=== PATIENT | male | born 1980 | race Caucasian/White ===

== ENCOUNTER 2021-07-30 12:37 | Emergency (ER) | payer OTHER, SELFPAY ==
--- NOTE | ~2021-07-30 | XR_ITS ---
EXAMINATION: XR CHEST CLINICAL INFORMATION: Shortness of breath COMPARISON: Previous chest x-ray April 2017 TECHNIQUE: Frontal view of the chest was obtained. FINDINGS: The cardiac and mediastinal contours are normal. The lungs are clear. There is no pleural effusion or pneumothorax. There is an old healed fracture and orthopedic hardware in the right clavicle similar to previous exam. Bony structures are otherwise unremarkable. XR/XR chest 1V IMPRESSION: No evidence for acute disease in the chest.
[2021-07-30 12:45] VITALS: BP 147/97; PULSE 58; RESP 18; TEMP 36.7; O2SAT 99; BMI 26.6
--- NOTE | 2021-07-30 13:19 | ED_ITS ---
HPI - URI/Sore Throat General Chief Complaint: Upper Respiratory Symptoms Stated Complaint: Sob, Covid + Time Seen by Provider: 07/30/21 13:13 Source: patient and distresser Mode of arrival: ambulatory Limitations: language barrier History of Present Illness HPI Narrative: 41-year-old male w/ history of asthma here with complaints of some shortness of breath, chills, body aches and nausea with some chest discomf ort with coughing since last evening. Patient tells me tested positive for COVID on July 22. He had been feeling okay until yesterday when his symptoms seem to get much worse. Patient is not vaccinated for COVID Related Data Allergies Allergy/AdvReac Type Severity Reaction Status Date / Time No Known Allergies Allergy Unverified 04/25/20 19:19 [No Known Allergies*] Review of Systems Review of Systems: Yes all other systems are reviewed and are negative Constitutional: Constitutional: Reports no additional constitutional complaints, Reports body ache(s), Reports chills, Denies fever(s), Denies headache(s) and Denies weakness Eyes: Eyes: Reports no additional eye complaints and Denies change in vision ENT: Reports system reviewed and no additional complaints, except as documented, Denies dizziness, Denies headache(s), Denies nasal congestion, Denies nasal discharge and Denies neck pain Cardiovascular: Cardiovascular: Reports no additional cardiovascular complaints, Reports chest pain, Denies leg edema and Reports dyspnea Respiratory: Respiratory: Reports no additional respiratory complaints, Denies cough and Reports dyspnea Gastrointestinal: Gastrointestinal: Reports no additional gastrointestinal complaints, Denies abdominal pain, Denies diarrhea, Denies nausea and Denies vomiting Genitourinary: Genitourinary: Denies urinary incontinence Musculoskeletal: Musculoskeletal: Reports no additional musculoskeletal compla ints, Denies back pain, Denies arthralgias, Denies joint swelling, Denies neck pain, Denies numbness and Denies tingling Integumentary/Breasts: Skin/Breast: Reports system reviewed and no additional complaints, except as docu and Denies rash Neurologic: Denies Abnormal speech present, Denies dizziness, Denies heada aba(s), Denies numbness, Denies tingling and Denies weakness PMFSH Past Medical History Attestation statement: The following information was validated with the patient. Source: old records reviewed and nursing notes reviewed Medical History Asthma COVID-19 Social History Social History Advance Directives: No Advance Directives Information Provided: No Physical Exam Vital Signs: Vital Signs: Last Vital Signs Temp 98.6 F 07/30/21 16:00 Pulse 60 07/30/21 16:00 Resp 16 07/30/21 16:00 BP 131/92 H 07/30/21 16:00 Pulse Ox 99 07/30/21 16:00 BMI result Body Mass Index 26.6 Const: General: cooperative, healthy appearing, comfortable and no acute distress Orientation/consciousness: patient oriented x3 Limitations: no limitations HENMT: Head: Yes normal to inspection Ears: hearing grossly normal bilaterally General nose exam: Normal external nose present Face and sinus: Yes normal facial exam Mouth: Normal oral and palatal mucosa present Throat: Yes posterior oropharynx normal Eyes: General: appearance normal, both eyes and all related structures Pupils: Equal, round and reactive pupils present Neck: Neck: Yes normal visual inspection Chest: Chest palpation & inspection: normal inspection of the chest Resp: Effort & Inspection: normal respiratory effort Auscultation: clear to auscultation bilaterally Cardio: Rate: regular rate Rhythm: regular rhythm Peripheral pulses: Peripheral pulses 2+ throughout GI: Inspection: Yes normal to inspection Palpation (GI): Soft to palpation and nontender Auscultation: normal bowel sounds Back/Spine/Pelvis: Thoracic/Lumbar Spine: thoracic and lumbar spine normal to inspection Skin: General skin exam: no rashes or lesions noted Neuro: General: patient oriented x3, no focal motor deficits and normal sensation to monofilament Cranial nerves: Yes Equal, round and reactive pupils present Cognition (Neuro): normal cognition Speech: No Abnormal speech present Gait exam (Neuro): Normal gait present Motor exam (neuro): 5/5 motor strength present throughout Extrem: General: Yes normal to inspection, Yes no pedal edema and Yes no calf tenderness Course Course Course Narrative: 41-year-old male with a history of asthma, not vaccinated for COVID here with complaints of shortness of breath, chest discomfort with coughing, body aches, chills since last evening. Patient tested positive for COVID on July 22. His initial symptoms were loss of taste and smell but last night his symptoms became much worse which prompted his visit here in the emergency department. Vitals are stable. Patient is speaking full sentences. No obvious tachypnea shortness of. No leg swelling or pain. Will check chest x-ray, EKG, labs. 1600-chest x-ray shows no acute finding. EKG and troponin are flat. Labs showed no acute abnormality. The patient is speaking full sentences. Lung sounds are clear. No hypoxia, tachycardia or tachypnea. Reassured the patient. Due to his history of asthma and obesity he is a candidate for monoclonal antibodies. A referral was faxed to [facility] and the patient was given a copy of the report. Reviewed worrisome signs and symptoms of when to return to the emergency d epartment. Comfortable discharge home. MDM - URI/Sore Throat Medical Records Attestation: I reviewed the patient's medical records. Lab Data Attestation: I reviewed the patient's lab results. Result diagrams: 07/30/21 15:08 07/30/21 15:08 Labs: Lab Results 07/30/21 07/30/21 07/30/21 Range/Units 15:08 15:08 15:08 WBC 4.9 (4.8-10.8) X10*3/uL RBC 5.77 (4.60-5.80) X10*6/uL Hgb 16.6 (14.0-18.0) g/dl Hct 51.1 (42.0-52.0) % MCV 88.6 (80.0-98.0) fL MCH 28.8 (27.0-33.0) pg MCHC 32.5 (31.0-36.0) g/dl RDW 12.8 (11.0-16.0) % Plt Count 206 (160-400) X10*3/uL MPV 11.6 (9.4-12.4) fL Immature Gran % (Auto) 0.8 H (0.0-0.4) % Neut % (Auto) 47.6 (45-73) % Lymph % (Auto) 32.7 (20-40) % Creek % (Auto) 15.4 H (2-11) % Eos % (Auto) 3.3 (0-4) % Baso % (Auto) 0.2 (0-2) % Lymph # (Auto) 1.6 (1.2-4.9) X10*3/uL [place] # (Auto) 0.8 (0.1-1.2) X10*3/uL Eos # (Auto) 0.2 (0.0-0.4) X10*3/uL Baso # (Auto) 0.0 (0.0-0.2) X10*3/uL Abs Immat Gran (auto) 0.04 H (0.00-0.03) X10*3/uL Absolute Neuts (auto) 2.3 (2.0-8.3) x10*3/uL Absolute Nucleated RBC 0.000 (0.0-0.012) X10*3/uL Nucleated RBC % (auto) 0.0 (0.0-0.2) /100WBC D-Dimer High Sensitivty < 150 NG/ML Sodium 138 (135-145) mmol/L Potassium 4.3 (3.3-5.1) mmol/L Chloride 105 (96-108) mmol/L Carbon Dioxide 25 (22-29) mmol/L Anion Gap 12 (12-20) BUN 10 (9-16) mg/dL Creatinine 0.81 (0.5-1.4) mg/dL Estim Creat Clear Calc 108.3 Estimated GFR > 60 Random Glucose 99 (60-115) mg/dL Calcium 10.0 (8.4-10.2) mg/dL Total Bilirubin 0.4 (0.0-1.0) mg/dL Direct Bilirubin 0.2 (0.0-0.5) mg/dL AST 40 H (5-37) U/L ALT 80 H (0-40) U/L Alkaline Phosphatase 64 (39-117) U/L Troponin I High Sens (<3.5-35.0) ng/L Total Protein 7.9 (6.5-8.0) g/dL Albumin 4.3 (3.5-5.0) g/dL COVID-19 (GERRY) (Negative) COVID-19 Clin Com 07/30/21 07/30/21 Range/Units 15:08 15:08 WBC (4.8-10.8) X10*3/uL RBC (4.60-5.80) X10*6/uL Hgb (14.0-18.0) g/dl Hct (42.0-52.0) % MCV (80.0-98.0) fL MCH (27.0-33.0) pg MCHC (31.0-36.0) g/dl RDW (11.0-16.0) % Plt Count (160-400) X10*3/uL MPV (9.4-12.4) fL Immature Gran % (Auto) (0.0-0.4) % Neut % (Auto) (45-73) % Lymph % (Auto) (20-40) % Creek % (Auto) (2-11) % Eos % (Auto) (0-4) % Baso % (Auto) (0-2) % Lymph # (Auto) (1.2-4.9) X10*3/uL [place] # (Auto) (0.1-1.2) X10*3/uL Eos # (Auto) (0.0-0.4) X10*3/uL Baso # (Auto) (0.0-0.2) X10*3/uL Abs Immat Gran (auto) (0.00-0.03) X10*3/uL Absolute Neuts (auto) (2.0-8.3) x10*3/uL Absolute Nucleated RBC (0.0-0.012) X10*3/uL Nucleated RBC % (auto) (0.0-0.2) /100WBC D-Dimer High Sensitivty NG/ML Sodium (135-145) mmol/L Potassium (3.3-5.1) mmol/L Chloride (96-108) mmol/L Carbon Dioxide (22-29) mmol/L Anion Gap (12-20) BUN (9-16) mg/dL Creatinine (0.5-1.4) mg/dL Estim Creat Clear Calc Estimated GFR Random Glucose (60-115) mg/dL Calcium (8.4-10.2) mg/dL Total Bilirubin (0.0-1.0) mg/dL Direct Bilirubin (0.0-0.5) mg/dL AST (5-37) U/L ALT (0-40) U/L Alkaline Phosphatase (39-117) U/L Troponin I High Sens 8.5 (<3.5-35.0) ng/L Total Protein (6.5-8.0) g/dL Albumin (3.5-5.0) g/dL COVID-19 (GERRY) Positive A (Negative) COVID-19 Clin Com See Note Imaging Data Chest x-ray: Attestation: I personally reviewed and interpreted this imaging study as follows: Radiologist's impression: Launch?Image [address] [id number] XRay Report Signed Patient: Jamal Contreras MR#: [id number] : 1980 Acct:[id number] Age/Sex: 41 / M ADM Date: 07/30/21 Loc: .ED Attending Dr: Ordering Physician: Jairo Gurrola MD Date of Service: 07/30/21 Procedure(s): XR chest 1V Accession Number(s): [id number] cc: Jairo Gurrola MD~ EXAMINATION: XR CHEST CLINICAL INFORMATION: Shortness of breath COMPARISON: Previous chest x-ray April 2017 TECHNIQUE: Frontal view of the chest was obtained. FINDINGS: The cardiac and mediastinal contours are normal. The lungs are clear. There is no pleural effusion or pneumothorax. There is an old healed fracture and orthopedic hardware in the right clavicle similar to previous exam. Bony structures are otherwise unremarkable. XR/XR chest 1V IMPRESSION: No evidence for acute disease in the chest. ? ECG Data Attestation: I personally reviewed and interpreted this ECG as follows: ECG interpretation date: 07/30/21 ECG interpretation time: 14:14 Interpretation: Sinus bradycardia with a rate of 48, normal OR, normal QRS, normal QT. Nonspecific ST changes unchanged when compared to previous 2017 Discharge Plan Discharge Clinical Impression: COVID-19 Patient Disposition: Home, Self-Care Instructions: COVID-19 (Coronavirus Disease 2019) (ED) Additional Instructions: You have been referred for monoclonal antibody treatment. You were given your referral in case you needed Continue to alternate Motrin and Tylenol Increase fluids, rest Continue your quarantine until August 02 Referrals: Rubens Yuen MD [Primary Care Provider] - 2 days Stand Alone Forms: Work/School Release Interventions: ED Discharge Assessment Last Done: 07/30/21 16:36 Discharge Date/Time: 07/30/21 16:37 Print Language: Icelandic
--- NOTE | 2021-07-30 13:43 | ECG_ITS ---
Test Reason : CHEST PAIN Blood Pressure : / mmHG Vent. Rate : 048 BPM Atrial Rate : 048 BPM P-R Int : 136 ms QRS Dur : 078 ms QT Int : 426 ms P-R-T Axes : 064 076 033 degrees QTc Int : 380 ms Artifact in tracing Sinus bradycardia Otherwise normal ECG When compared with ECG of 05-MAY-2017 14:42, T wave inversion no longer evident in Inferior leads Referred By: Colette Cassidy Electronically Signed By:AZAEL GREENE
[2021-07-30] MEDS: Albuterol Sulfate 90 MCG 8 GM INHALER 2 PUFF INHALE (14:10)
[2021-07-30 15:13] LABS: MANUAL DIFF FLAG NO
[2021-07-30 15:25] LABS: Basophils Percent Auto 0.2 % (0-2); Eosinophils Absolute Auto 0.2 X10*3/uL (0.0-0.4); Eosinophils Percent Auto 3.3 % (0-4); Hematocrit 51.1 % (42.0-52.0); Hemoglobin 16.6 g/dl (14.0-18.0); Imm Gran Abs Auto 0.04 X10*3/uL (0.00-0.03); Imm Gran Pct Auto 0.8 % (0.0-0.4); Lymphocytes Absolute Auto 1.6 X10*3/uL (1.2-4.9); Lymphocytes Percent Auto 32.7 % (20-40); Mean Corpuscular HGB Conc 32.5 g/dl (31.0-36.0); Mean Corpuscular Hemoglobin 28.8 pg (27.0-33.0); Mean Corpuscular Volume 88.6 fL (80.0-98.0); Mean Platelet Volume 11.6 fL (9.4-12.4); Monocytes Absolute Auto 0.8 X10*3/uL (0.1-1.2); Monocytes Percent Auto 15.4 % (2-11); Neutrophils Absolute Auto 2.3 x10*3/uL (2.0-8.3); Neutrophils Percent Auto 47.6 % (45-73); Platelet Count 206 X10*3/uL (160-400); Red Blood Count 5.77 X10*6/uL (4.60-5.80); Red Cell Distribution Width 12.8 % (11.0-16.0); White Blood Count 4.9 X10*3/uL (4.8-10.8)
[2021-07-30 15:31] LABS: Alanine Aminotransferase 80 U/L (0-40); Albumin Level 4.3 g/dL (3.5-5.0); Alkaline Phosphatase 64 U/L (39-117); Anion Gap 12 (12-20); Aspartate Amino Transferase 40 U/L (5-37); Bilirubin Direct 0.2 mg/dL (0.0-0.5); Bilirubin Total 0.4 mg/dL (0.0-1.0); Blood Urea Nitrogen 10 mg/dL (9-16); Carbon Dioxide 25 mmol/L (22-29); Chloride 105 mmol/L (96-108); Creatinine Clr Calc Pharmacy 108.3; Estimated Glomerular Filt Rate > 60; Glucose Random 99 mg/dL (60-115); Potassium 4.3 mmol/L (3.3-5.1); Sodium 138 mmol/L (135-145); Total Protein 7.9 g/dL (6.5-8.0)
[2021-07-30 15:34] LABS: D Dimer High Sensitivity < 150 NG/ML
[2021-07-30 15:35] LABS: COVID-19 Test Positive (Negative); Troponin-I High Sensitivity 8.5 ng/L (<3.5-35.0)
[2021-07-30 16:00] VITALS: BP 131/92; PULSE 60; RESP 16; TEMP 37; O2SAT 99
== END 2021-07-30 16:37 | disposition home or self-care (01) ==
PROVIDERS: Nurse Practitioner Family; Emergency Provider Emergency Medicine Emergency Medical Services; PCP Internal Medicine
DX: U07.1 COVID-19 (principal); R06.02 Shortness of breath; Z79.899 Other long term (current) drug therapy
CPT/HCPCS: 36415; 71045; 80048; 80076; 84484; 85025; 85379; 87635; 93005; 99284

== ENCOUNTER 2021-08-05 09:39 | Emergency (ER) | payer OTHER, SELFPAY ==
--- NOTE | ~2021-08-05 | US_ITS ---
EXAMINATION: US ABDOMEN LIMITED CLINICAL INFORMATION: Right upper quadrant pain. COMPARISON: CT abdomen pelvis 08/05/2021 TECHNIQUE: Real-time imaging of the gallbladder only was performed. FINDINGS: GALLBLADDER: The gallbladder is physiologically distended without evidence of stones, sludge, polyps, wall thickening or pericholecystic fluid. Although the gallbladder appeared normal, the patient did experience tenderness when the area was compressed by the shaper operator. COMMON BILE DUCT: Normal in caliber measuring 0.3 cm in diameter. US/US abdomen limited IMPRESSION: Normal-appearing gallbladder, but with tenderness on compression.
--- NOTE | ~2021-08-05 | CT_ITS ---
EXAMINATION: CT ABDOMEN AND PELVIS WITH CONTRAST CLINICAL INFORMATION: Tender, guarding, vomiting. COMPARISON: None. TECHNIQUE: Multidetector volumetric images were obtained from the superior aspect of the liver through the pubic symphysis following administration 85 mL of Omnipaque 350 intravenous contrast. Sagittal and coronal reformatted images were obtained on the technologist's workstation. Oral contrast: No This CT examination was performed using dose optimization techniques as appropriate, variously including the following: *Automated exposure control *Adjustment of mA and/or kV according to patient size (this includes techniques or standardized protocols for targeted exams where dose is matched to indication/reason for exam; i.e. extremities or head) *Use of iterative reconstruction technique DLP: 380 mGy-cm. FINDINGS: LUNG BASES: The visualized lung bases are unremarkable. LIVER, GALLBLADDER, AND BILIARY TREE: There is a heterogeneously enhancing lesion in segment 7 of the right lobe of the liver measuring 1.4 cm. There are no other focal lesions. There is no biliary duct dilatation. The gallbladder is only mildly distended. There is some nonspecific mild enhancement of the wall. There are no pericholecystic inflammatory changes. There are no definite calcified gallstones. Cholesterol stones are not excluded. PANCREAS: Unremarkable. SPLEEN: Unremarkable. ADRENAL GLANDS: Unremarkable. KIDNEYS AND URETERS: There is a 1 cm exophytic cyst in the midpole of the left kidney. The kidneys and ureters are otherwise unremarkable. BLADDER: Unremarkable. GASTROINTESTINAL TRACT: The small and large bowel are unremarkable. The appendix is unremarkable. ABDOMINAL WALL: No significant hernia is appreciated. LYMPH NODES: Normal. VASCULAR: Unremarkable. PELVIC VISCERA: Unremarkable. OSSEOUS STRUCTURES: Unremarkable. CT/CT abdomen pelvis w con IMPRESSION: 1. Heterogeneously enhancing lesion in segment 7 of the right lobe of the liver. The most likely etiology is a hemangioma. Consider MRI without and with contrast for confirmation. 2. Mild enhancement of the gallbladder wall which is nonspecific but could represent mild inflammation. No definite gallstones but noncalcified gallstones are not excluded. Consider ultrasound if clinically indicated. 3. No other acute abnormalities in the abdomen or pelvis.
[2021-08-05 10:02] VITALS: BP 141/88; PULSE 68; RESP 17; TEMP 36.8; O2SAT 99; BMI 29.0
[2021-08-05 11:45] LABS: Influenza A PCR NEGATIVE (Negative); Influenza B PCR NEGATIVE (Negative); Resp Syncy Virus RNA Qual PCR NEGATIVE (Negative); SARS COV2 PCR INHOUSE POSITIVE (Negative)
[2021-08-05] MEDS: 0.9 % Sodium Chloride 1,000 ML 999 ML IV ×2 (12:22→15:33)
[2021-08-05] MEDS: Acetaminophen 325 MG TABLET 650 MG PO (12:25)
[2021-08-05] MEDS: ondansetron HCL 4 MG/2 ML VIAL IVPUSH ×2 (12:26→15:32)
--- NOTE | 2021-08-05 12:28 | ED.GENADULT ---
HPI - General Adult General Chief complaint: Upper Respiratory Symptoms Stated complaint: COVID Symptoms Time Seen by Provider: 08/05/21 11:26 Source: patient Mode of arrival: ambulatory Limitations: no limitations History of Present Illness HPI narrative: 41-year-old male who tested positive for COVID 16 days ago, and retested positive for COVID do some for , presents for vomiting and nausea with diarrhea that started today. Patient was close to go back to work, he was feeling better, but he felt mildly sick yesterday, and today had nausea, diarrhea, vomiting, sore throat, chills, ankle. Patient states he was having multiple episodes of diarrhea, and was on the toilet, and felt that that part of his rectum was prolapsing. Related Data Allergies Allergy/AdvReac Type Severity Reaction Status Date / Time No Known Allergies Allergy Unverified 04/25/20 19:19 [No Known Allergies*] Review of Systems Constitutional: Constitutional: Reports body ache(s), Reports chills, Reports fatigue, Denies fever(s) and Denies weakness Eyes: Eyes: Denies blind spots and Denies change in vision ENT: Reports nasal congestion, Reports nasal discharge, Denies neck pain and Reports sore throat Cardiovascular: Cardiovascular: Denies chest pain, Denies leg edema, Denies lightheadedness, Denies Loss of Consciousness, Denies palpitations and Denies dyspnea Respiratory: Respiratory: Denies chest congestion, Reports cough, Reports excessive phlegm production, Denies pain on inspiration and Denies dyspnea Gastrointestinal: Gastrointestinal: Reports abdominal pain, Denies melena, Denies hematochezia, Denies coffee ground emesis, Reports diarrhea, Reports nausea and Reports vomiting Musculoskeletal: Musculoskeletal: Reports myalgias and Denies neck pain Integumentary/Breasts: Skin/Breast: Denies erythema and Denies rash Neurologic: Reports system reviewed and no additional complaints, except as documented and Denies weakness Endocrine: Endocrine: Reports fatigue and Denies palpitations PMFSH Past Medical History Medical History Asthma COVID-19 Social History Social History Advance Directives: No Advance Directives Information Provided: No Physical Exam Vital Signs: Vital Signs: Last Vital Signs Temp 98.2 F 08/05/21 13:43 Pulse 82 08/05/21 17:31 Resp 16 08/05/21 17:31 BP 113/73 08/05/21 17:31 Pulse Ox 99 08/05/21 17:31 BMI result Body Mass Index 29.0 Const: Other: actively vomiting General: cooperative, well developed, alert and awake Nutritional Appearance: well nourished Orientation/consciousness: patient oriented x3 Limitations: no limitations HENMT: Head: Yes normal to inspection, Yes normocephalic and Yes atraumatic Ears: hearing grossly normal bilaterally, external ears normal, TM's normal bilaterally and EAC's normal General nose exam: Normal external nose present Face and sinus: Yes normal facial exam and Yes sinuses nontender Mouth: Normal oral and palatal mucosa present Throat: Yes posterior oropharynx normal Eyes: Conjunctivae: conjunctivae normal Pupils: Equal, round and reactive pupils present EOM: EOMs intact bilaterally Neck: Neck: Yes full ROM, Yes no lymphadenopathy and Yes supple Resp: Effort & Inspection: normal respiratory effort and able to speak in complete sentences Auscultation: clear to auscultation bilaterally, no crackles, no rales, no rhonchi and no wheezes Cardio: Rate: regular rate Rhythm: regular rhythm Heart sounds: S1 normal heart sound present and S2 normal heart sound present GI: Inspection: Yes normal to inspection Palpation (GI): Soft to palpation, Tenderness to palpation present (GI) (tender in all quadrants), no guarding and not rigid Percussion: Yes normal to percussion Auscultation: normal bowel sounds Rectal Exam - Male: Yes visual inspection normal, Yes normal sphincter tone, No Abnormal stool present and Yes Internal hemorrhoid(s) present (palpated hemmorrhoid/mass on left side) Skin: General skin exam: no rashes or lesions noted Neuro: General: patient oriented x3, tone normal and moves all extremities Cranial nerves: Yes Equal, round and reactive pupils present Extrem: General: Yes normal to inspection and Yes full ROM Psych: Appearance: grossly normal Affect: normal affect Attitude: cooperative Thought process: Normal thought process present Course Course Course Narrative: 41-year-old male presents with continuing COVID symptoms after feeling better recently. Patient was diagnosed with COVID 15 days ago, tested positive for COVID again on Jul 30 and a was feeling better and finishes quarantine and was returning to work, when yesterday and this morning started having nausea and vomiting, with diarrhea, sore throat with vomiting, and a mild cough On exam, patient is stable vitals, his abdominal exam he has tenderness throughout his entire abdomen, he has what may be an internal hemorrhoid on the left side of has rectum that I was able to feel during rectal exam. Will get labs, retest for COVID, give Zofran, Tylenol Reevaluation(s) Reevaluation #1: Pt Covid positive again Magnesium is normal, there is no leukocytosis, lipase is within normal limits, labs are unremarkable. Patient continues to vomit, has had 2 or 3 episodes of vomiting here, will get CT scan to rule out any worsening pathology. Reevaluation #2: CT/CT abdomen pelvis w con IMPRESSION: 1. Heterogeneously enhancing lesion in segment 7 of the right lobe of the liver. The most likely etiology is a hemangioma. Consider MRI without and with contrast for confirmation. 2. Mild enhancement of the gallbladder wall which is nonspecific but could represent mild inflammation. No definite gallstones but noncalcified gallstones are not excluded. Consider ultrasound if clinically indicated. 3. No other acute abnormalities in the abdomen or pelvis.? Patient was tender in upper right and left abdomen, will apparent ultrasound of gallbladder to rule out gallbladder pathology. Bilirubin only 1.1. If no gallbladder disease, will send patient home with Zofran, Tylenol, rest, push fluids, return precautions Signed pt out to [facility], pending US results Medical Decision Making Lab Data Result diagrams: 08/05/21 12:20 08/05/21 15:19 Labs: Lab Results 08/05/21 08/05/21 08/05/21 Range/Units 10:59 12:20 15:19 WBC 7.2 (4.8-10.8) X10*3/uL RBC 5.23 (4.60-5.80) X10*6/uL Hgb 15.1 (14.0-18.0) g/dl Hct 45.8 (42.0-52.0) % MCV 87.6 (80.0-98.0) fL MCH 28.9 (27.0-33.0) pg MCHC 33.0 (31.0-36.0) g/dl RDW 12.5 (11.0-16.0) % Plt Count TNP MPV 12.5 H (9.4-12.4) fL Immature Gran % (Auto) 0.8 H (0.0-0.4) % Neut % (Auto) 53.1 (45-73) % Lymph % (Auto) 34.8 (20-40) % [place] % (Auto) 8.5 (2-11) % Eos % (Auto) 2.5 (0-4) % Baso % (Auto) 0.3 (0-2) % Lymph # (Auto) 2.5 (1.2-4.9) X10*3/uL [place] # (Auto) 0.6 (0.1-1.2) X10*3/uL Eos # (Auto) 0.2 (0.0-0.4) X10*3/uL Baso # (Auto) 0.0 (0.0-0.2) X10*3/uL Abs Immat Gran (auto) 0.06 H (0.00-0.03) X10*3/uL Absolute Neuts (auto) 3.8 (2.0-8.3) x10*3/uL Absolute Nucleated RBC 0.000 (0.0-0.012) X10*3/uL Nucleated RBC % (auto) 0.0 (0.0-0.2) /100WBC Sodium 141 (135-145) mmol/L Potassium 4.9 (3.3-5.1) mmol/L Chloride 108 (96-108) mmol/L Carbon Dioxide 27 (22-29) mmol/L Anion Gap 11 L (12-20) BUN 8 L (9-16) mg/dL Creatinine 0.84 (0.5-1.4) mg/dL Estim Creat Clear Calc 116.1 Estimated GFR > 60 Random Glucose 89 (60-115) mg/dL Calcium 10.1 (8.4-10.2) mg/dL Magnesium 2.1 (1.6-2.6) mg/dL Total Bilirubin 1.1 H (0.0-1.0) mg/dL AST 37 (5-37) U/L ALT 70 H (0-40) U/L Alkaline Phosphatase 61 (39-117) U/L Total Protein 7.7 (6.5-8.0) g/dL Albumin 4.3 (3.5-5.0) g/dL Lipase 33 (8-78) U/L Influenza Type A (PCR) NEGATIVE (Negative) Influenza Type B (PCR) NEGATIVE (Negative) RSV RNA Qual (PCR) NEGATIVE (Negative) SARS-CoV-2 RNA (RT-PCR) POSITIVE A (Negative) Discharge Plan Discharge Clinical Impression: Nausea vomiting and diarrhea, COVID-19
[2021-08-05 12:32] LABS: MANUAL DIFF FLAG NO
[2021-08-05 12:34] LABS: Basophils Percent Auto 0.3 % (0-2); Eosinophils Absolute Auto 0.2 X10*3/uL (0.0-0.4); Eosinophils Percent Auto 2.5 % (0-4); Hematocrit 45.8 % (42.0-52.0); Hemoglobin 15.1 g/dl (14.0-18.0); Imm Gran Abs Auto 0.06 X10*3/uL (0.00-0.03); Imm Gran Pct Auto 0.8 % (0.0-0.4); Lymphocytes Absolute Auto 2.5 X10*3/uL (1.2-4.9); Lymphocytes Percent Auto 34.8 % (20-40); Mean Corpuscular Hemoglobin 28.9 pg (27.0-33.0); Mean Corpuscular Volume 87.6 fL (80.0-98.0); Mean Platelet Volume 12.5 fL (9.4-12.4); Monocytes Absolute Auto 0.6 X10*3/uL (0.1-1.2); Monocytes Percent Auto 8.5 % (2-11); Neutrophils Absolute Auto 3.8 x10*3/uL (2.0-8.3); Neutrophils Percent Auto 53.1 % (45-73); Red Blood Count 5.23 X10*6/uL (4.60-5.80); Red Cell Distribution Width 12.5 % (11.0-16.0); White Blood Count 7.2 X10*3/uL (4.8-10.8)
[2021-08-05 13:43] VITALS: BP 119/70; PULSE 52; RESP 16; TEMP 36.8; O2SAT 100
[2021-08-05 15:47] LABS: Alanine Aminotransferase 70 U/L (0-40); Albumin Level 4.3 g/dL (3.5-5.0); Alkaline Phosphatase 61 U/L (39-117); Anion Gap 11 (12-20); Aspartate Amino Transferase 37 U/L (5-37); Bilirubin Total 1.1 mg/dL (0.0-1.0); Blood Urea Nitrogen 8 mg/dL (9-16); Calcium 10.1 mg/dL (8.4-10.2); Carbon Dioxide 27 mmol/L (22-29); Chloride 108 mmol/L (96-108); Creatinine Clr Calc Pharmacy 116.1; Estimated Glomerular Filt Rate > 60; Glucose Random 89 mg/dL (60-115); Lipase 33 U/L (8-78); Magnesium 2.1 mg/dL (1.6-2.6); Potassium 4.9 mmol/L (3.3-5.1); Sodium 141 mmol/L (135-145); Total Protein 7.7 g/dL (6.5-8.0)
[2021-08-05] MEDS: iohexoL 350 MG/ML 100 ML INFUS..BTL IV (16:40)
[2021-08-05] MEDS: Morphine Sulfate 4 MG/ML CARTRIDGE IVPUSH (17:28)
[2021-08-05 17:31] VITALS: BP 113/73; PULSE 82; RESP 16; O2SAT 99
--- NOTE | 2021-08-05 19:45 | PC.NURSE ---
patient tolerated two bites of ice while I was in the room . He reported after he vomited and could not tolerate more. Provider and RN notified.
[2021-08-06] MEDS: diphenhydrAMINE HCL 50 MG/ML VIAL IVPUSH (00:12)
[2021-08-06] MEDS: Metoclopramide HCl 10 MG/2 ML VIAL IVPUSH (00:13)
[2021-08-06 00:15] VITALS: PULSE 50; RESP 16; TEMP 36.6; O2SAT 99
[2021-08-06] MEDS: Prochlorperazine Edisylate 10 MG/2 ML VIAL 5 MG IVPUSH (01:40)
[2021-08-06] MEDS: 0.9 % Sodium Chloride 1,000 ML 999 ML IV (01:40)
--- NOTE | 2021-08-06 02:04 | ECG_ITS ---
Test Reason : UPPER RESP Blood Pressure : / mmHG Vent. Rate : 044 BPM Atrial Rate : 044 BPM P-R Int : 152 ms QRS Dur : 078 ms QT Int : 494 ms P-R-T Axes : 067 062 034 degrees QTc Int : 422 ms Marked sinus bradycardia Abnormal ECG When compared with ECG of 30-JUL-2021 14:14, No significant change was found Referred By: Tyron Lim Electronically Signed By:Aden Cobb
[2021-08-06 02:29] VITALS: BP 103/71; PULSE 51; RESP 16; TEMP 36.6; O2SAT 98
--- NOTE | 2021-08-06 05:00 | ECG_ITS ---
Test Reason : WEAKNESS Blood Pressure : / mmHG Vent. Rate : 043 BPM Atrial Rate : 043 BPM P-R Int : 158 ms QRS Dur : 080 ms QT Int : 478 ms P-R-T Axes : 076 073 022 degrees QTc Int : 403 ms Marked sinus bradycardia Abnormal ECG When compared with ECG of 06-AUG-2021 02:57, No significant change was found Referred By: Juliet Andre Electronically Signed By:Aden Cobb
[2021-08-06 05:36] LABS: Amphetamine Screen Urine Not Detected (Not Detect); Barbiturates, Urine Not Detected (Not Detect); Benzodiazepines Screen Urine Not Detected (Not Detect); Cannabinoid Screen Urine POSITIVE (Not Detect); Cocaine Screen Urine Not Detected (Not Detect); Fentanyl, urine Not Detected (Not Detect); Opiate Screen Urine POSITIVE (Not Detect); Phencyclidine Screen Urine Not Detected (Not Detect)
== END 2021-08-06 05:37 | disposition home or self-care (01) ==
PROVIDERS: Physician Assistant; Emergency Provider Emergency Medicine; PCP Internal Medicine
DX: U07.1 COVID-19 (principal); R11.2 Nausea with vomiting, unspecified; R19.7 Diarrhea, unspecified; R10.10 Upper abdominal pain, unspecified; J45.909 Unspecified asthma, uncomplicated
CPT/HCPCS: 0241U; 36415; 74177; 76705; 80053; 80307; 83690; 83735; 85025; 93005; 96361; 96374; 96375; 96376; 99285; J1200; J2270; J2405; J2765; Q9967

== ENCOUNTER 2021-08-10 00:41 | Emergency (ER) | payer OTHER, SELFPAY ==
[2021-08-10 01:40] VITALS: BP 114/84; PULSE 69; RESP 18; TEMP 36.6; O2SAT 98; BMI 24.3
--- NOTE | 2021-08-10 01:49 | ED.MALEGU ---
HPI - Male Genitourinary General Chief complaint: Abdominal Pain Stated complaint: Private Issue Time Seen by Provider: 08/10/21 00:58 Source: patient Mode of arrival: ambulatory Limitations: no limitations History of Present Illness HPI Narrative: Patient with history of COVID noticed hemorrhoid swelling just prior to arrival no bleeding, ? History of hemorrhoids Related Data Previous Rx's Medication Instructions Recorded ondansetron 4 mg disintegrating 4 mg PO ONCE PRN #10 tab 08/06/21 tablet hydrocortisone acetate 25 mg 25 mg GA BID #12 ea 08/10/21 rectal suppository (Anusol-HC) Allergies Allergy/AdvReac Type Severity Reaction Status Date / Time No Known Allergies Allergy Unverified 04/25/20 19:19 [No Known Allergies*] Review of Systems Review of Systems: Yes all other systems are reviewed and are negative [facility] Past Medical History Medical History Asthma COVID-19 Social History Social History Advance Directives: No Advance Directives Information Provided: No Physical Exam Vital Signs: Vital Signs: Last Vital Signs Temp 97.8 F 08/10/21 01:40 Pulse 69 08/10/21 01:40 Resp 18 08/10/21 01:40 BP 114/84 08/10/21 01:40 Pulse Ox 98 08/10/21 01:40 BMI result Body Mass Index 24.3 Const: General: no acute distress and well developed Orientation/consciousness: patient oriented x3 Resp: Effort & Inspection: normal respiratory effort Auscultation: clear to auscultation bilaterally Cardio: Rate: regular rate Rhythm: regular rhythm Heart sounds: S1 normal heart sound present and S2 normal heart sound present GI: Inspection: Yes normal to inspection Palpation (GI): Soft to palpation and nontender Rectal Exam - Male: Yes External hemorrhoid(s) present (Prolapsed hemorrhoid normal color) Neuro: General: patient oriented x3 MDM - Male Genitourinary MDM Narrative Medical decision making narrative: Using Uro jet prolapsed hemorrhoid tried to push inside but pt refused , patient advised to use anusol supp and follow with surgeon Discharge Plan Discharge Clinical Impression: External hemorrhoids Patient Disposition: Home, Self-Care Instructions: Hemorrhoids (ED) Additional Instructions: Avoid straining Follow-up with surgeon for further care Use anusol suppository twice daily till heals completely Prescriptions: New hydrocortisone acetate [Anusol-HC] 25 mg suppository 25 mg GA BID Qty: 12 RF: 0 No Action ondansetron 4 mg tablet,disintegrating 4 mg PO ONCE PRN (Reason: nausea and vomiting) Qty: 10 RF: 0
[2021-08-10] MEDS: Lidocaine HCl 2 % Urojet 10 ML JEL.PF.APP TOPICAL (01:55)
== END 2021-08-10 03:09 | disposition home or self-care (01) ==
PROVIDERS: Emergency Provider Internal Medicine; PCP Internal Medicine
DX: K64.8 Other hemorrhoids (principal)
CPT/HCPCS: 99283

== ENCOUNTER 2021-11-25 18:15 | Emergency (ER) | payer OTHER, SELFPAY ==
[2021-11-25 19:09] VITALS: BP 121/86; PULSE 61; RESP 18; TEMP 36.5; O2SAT 98; BMI 24.7
--- NOTE | 2021-11-25 22:05 | ED_ITS ---
HPI - General Adult General Chief complaint: General Medical Stated complaint: toe infection Time Seen by Provider: 11/25/21 21:44 Source: patient Mode of arrival: ambulatory History of Present Illness HPI narrative: 41-year-old male who presents with developing and itchy area on his 3/4 toes of the right foot that he then scratched and states that it now appears to be more red and infected. He denies any fever, chills or trauma to the area. Related Data Previous Rx's Medication Instructions Recorded ondansetron 4 mg disintegrating 4 mg PO ONCE PRN #10 tab 08/06/21 tablet hydrocortisone acetate 25 mg 25 mg CO BID #12 ea 08/10/21 rectal suppository (Anusol-HC) cephalexin 500 mg capsule 500 mg PO Q12H 5 Days #10 cap 11/25/21 doxycycline hyclate 100 mg tablet 100 mg PO BID 5 Days #10 tab 11/25/21 Allergies Allergy/AdvReac Type Severity Reaction Status Date / Time No Known Allergies Allergy Unverified 04/25/20 19:19 [No Known Allergies*] Review of Systems Review of Systems: Pertinent positives and negatives as stated in HPI 10 point review of systems otherwise negative. [facility] Past Medical History Source: nursing notes reviewed Medical History Asthma COVID-19 Social History Social History Advance Directives: No Advance Directives Information Provided: No Physical Exam ED Vital Signs: Vital Signs - 24 hr 11/25/21 19:09 Temperature 97.7 F Pulse Rate 61 Respiratory Rate 18 Blood Pressure 121/86 Pulse Oximetry 98 BMI result Body Mass Index 24.7 VITAL SIGNS: Reviewed. GENERAL: Well developed, well nourished, in no acute distress. HEAD: Normocephalic/atraumatic EYES: PERRLA, EOMI EARS: Ext canals without abnormality OROPHARYNX: no oral lesions noted, posterior pharynx clear LUNGS: Normal breath sounds. No adventitious sounds or accessory muscle use. SpO2<98> CARDIOVASCULAR: Regular rate and rhythm without noted murmurs ABDOMEN: Soft, non-tender, non-distended with bowel sounds. MUSCULOSKELETAL: No tenderness, deformities, or effusions noted on gross inspection. EXTREMITIES: No cyanosis, clubbing or edema; the 3rd and 4th toes of the right foot on the dorsal aspect appear somewhat erythematous and excoriated, palpable DP/PT, capillary refill and sensation is intact. SKIN: Inspection of the skin reveals no rashes NEUROLOGIC: Alert and oriented x 4. Strength and sensation to light touch were grossly intact x 4. Course Course Course Narrative: 41-year-old male with history and clinical presentation of atraumatic what appears to be superimposed skin infection. Patient will be provided with combination doxycycline and cephalexin for suspected superimposed staph/strep infection. All results and findings discussed with the patient and his family member at bedside. Discharge Plan Discharge Clinical Impression: Abrasion of third toe, right, infected, Abrasion of fourth toe, right, infected Patient Disposition: Home, Self-Care Instructions: Swollen Joint (ED) Additional Instructions: 1. Complete todo el ciclo de antibi?ticos. 2. Lisa un seguimiento con baird proveedor de atenci?n primaria en los pr?ximos 2 a 3 d?as. Regrese a la jessica de emergencias si los s?ntomas empeoran. Prescriptions: New cephalexin 500 mg capsule 500 mg PO Q12H 5 Days Qty: 10 0RF doxycycline hyclate 100 mg tablet 100 mg PO BID 5 Days Qty: 10 0RF No Action ondansetron 4 mg tablet,disintegrating 4 mg PO ONCE PRN (Reason: nausea and vomiting) Qty: 10 0RF hydrocortisone acetate [Anusol-HC] 25 mg suppository 25 mg CO BID Qty: 12 0RF Referrals: Rubens Yuen MD [Primary Care Provider] - Print Language: Citizen Of [place]
[2021-11-25] MEDS: cephALEXin 500 MG CAPSULE PO (22:28)
== END 2021-11-25 22:44 | disposition home or self-care (01) ==
PROVIDERS: Emergency Provider Student in an Organized Health Care Education/Training Program; PCP Internal Medicine
DX: S90.414A Abrasion, right lesser toe(s), initial encounter (principal); X58.XXXA Exposure to other specified factors, initial encounter; Y93.9 Activity, unspecified; Y92.9 Unspecified place or not applicable; Y99.9 Unspecified external cause status; Z79.899 Other long term (current) drug therapy
CPT/HCPCS: 99283

== ENCOUNTER 2021-12-12 10:11 | Emergency (ER) | payer OTHER, SELFPAY ==
--- NOTE | ~2021-12-12 | XR_ITS ---
EXAMINATION: XR FOOT, RIGHT CLINICAL INFORMATION: Infection in the right toes. COMPARISON: None TECHNIQUE: AP, lateral, and oblique views of the right foot. Indicating arrow is pointing to the third and fourth digits. FINDINGS: There is no acute fracture or dislocation. No distal cortical erosive changes are seen. The joint spaces are unremarkable. The tarsal bones are normally aligned. There is an incidental type II accessory navicular bone. The tarsal bones are normally aligned. The soft tissues are unremarkable. XR/XR foot RT min 3V IMPRESSION: Unremarkable right foot. Specifically, no significant acute abnormality in the digits distally.
[2021-12-12 10:13] VITALS: BP 114/81; PULSE 76; RESP 17; TEMP 36.2; O2SAT 97; BMI 25.4
--- NOTE | 2021-12-12 11:32 | ED_ITS ---
HPI - Skin/Abscess/Foreign Bdy General Chief complaint: Extremity Problem Stated complaint: Infected toes Time Seen by Provider: 12/12/21 10:59 Source: patient Mode of arrival: ambulatory Limitations: no limitations History of Present Illness HPI narrative: 41-year-old male with a past medical history of asthma in COVID-19 presenting to the ED with complaints of a rash that is itchy in nature to his right foot that started at the 4th toe and has now spread to the 3rd toe. He reports that he was seen here on 11/25/2021 and diagnosed with a skin infection sent home with 2 antibiotics which include Keflex and doxycycline for 5 days he reports that he took both antibiotics as prescribed and he reports no improvement and he reports that has now spread to the 3rd toe. He reports that this initially started [place] the [place] he felt like something with over his foot or bit his toe although he did not see anything there. He denies any fevers, drainage or any other symptoms complaints or concerns at this time. MD complaint: rash Onset (ago): week(s) (3) Location: R foot Severity: mild Quality: constant and pruritic Pain Consistency: constant Relieving factors: none Exacerbating factors: none Context: other (While at the beach) Associated symptoms: denies other symptoms Treatments prior to arrival: other (Doxycycline and Keflex on 11/25/2021 for 5 days took as prescribed) Related Data Previous Rx's Medication Instructions Recorded ondansetron 4 mg disintegrating 4 mg PO ONCE PRN #10 tab 08/06/21 tablet hydrocortisone acetate 25 mg 25 mg AK BID #12 ea 08/10/21 rectal suppository (Anusol-HC) cephalexin 500 mg capsule 500 mg PO Q12H 5 Days #10 cap 11/25/21 doxycycline hyclate 100 mg tablet 100 mg PO BID 5 Days #10 tab 11/25/21 cephalexin 500 mg capsule 500 mg PO Q6H 10 Days #40 cap 12/12/21 doxycycline hyclate 100 mg tablet 100 mg PO BID 10 Days #20 tab 12/12/21 hydrocortisone 2.5 % topical 1 appl TOPICAL QD-TID PRN #454 g 12/12/21 ointment Allergies Allergy/AdvReac Type Severity Reaction Status Date / Time No Known Allergies Allergy Unverified 04/25/20 19:19 [No Known Allergies*] Review of Systems Review of Systems: Constitutional : No Fever, No Chills , no body aches, no recent illness Head/Face: No facial swelling, No facial redness ENT/Mouth : No oral/throat swelling, No Hoarseness, No Swallowing Difficulty Eyes: No Eye Pain, No Swelling, No Redness Cardiovascular : No Chest Pain, No SOB, No palpitations Respiratory : No Cough, No Sputum, No Wheezing, No Smoke Exposure, No Dyspnea Gastrointestinal : No Nausea, No Vomiting, No Diarrhea, No abdominal Pain Genitourinary : No Dysuria, No Urinary Frequency, No Hematuria Musculoskeletal : No joint pain, No Myalgias, No Joint Swelling Skin : No Skin Lesions, positive rash Neuro : No Weakness, No Numbness, No Headache, No dizziness, No tingling Psych : No Anxiety/Panic, No Depression Heme/Lymph: No Bruising, No Lymphadenopathy Endocrine : No Polyuria, No Polydipsia Denies changes in lotions or detergents. Denies new medications or any changes in medications. Denies drainage from rash. Denies any recent sick contacts or recent travel. Yes all other systems are reviewed and are negative [facility] Past Medical History Attestation statement: The following information was validated with the patient. Medical History Asthma COVID-19 Social History Social History Advance Directives: No Physical Exam Vital Signs: Vital Signs: Last Vital Signs Temp 97.2 F 12/12/21 10:13 Pulse 76 12/12/21 10:13 Resp 17 12/12/21 10:13 BP 114/81 12/12/21 10:13 Pulse Ox 97 12/12/21 10:13 BMI result Body Mass Index 25.4 vital signs have been reviewed as normal and appeared to be correct. Blood pre ssure normal Heart rate normal. Respiration rate normal. Temperature normal. Oxygen saturation normal. Appearance: Alert. Oriented X3. No acute distress. Head: Normal external exam. Normocephalic. Atraumatic. Eyes: PERRLA. EOMI. Conjunctiva and sclera normal. Eyelids normal. ENT: Pharynx normal. Uvula midline. Moist mucous membranes. Neck: Normal inspection. Neck supple. FROM. CVS: Normal heart rate and rhythm. Respiratory: No respiratory distress. Painless inspiration. Skin: Skin warm and dry. Normal skin color. Normal skin turgor. No rashes/lesions/lacerations noted. Extremities: To the right foot patient has dry macular papular eczematous appearing rash very mild no streaking/induration/fluctuance/surrounding erythema/drainage it does not appear wet like a fungal infection it appears more dry than anything. Patient reports it is nontender to palpation. Otherwise no lower extremity edema. All other extremities exhibit normal range of motion nontender. Neuro: Oriented X 3. No motor deficit. No sensory deficit. Reflexes normal. Normal steady gait. No focal neuro deficits noted. Vascular: + radial pulses/+ 2 distal pedal pulses/+2 dorsalis pedis b/l. Normal cap refill. No cyanosis noted to upper extremity nails and lower extremity toes nails. Course Course Course Narrative: 41-year-old male with a past medical history of asthma in [place] [id number] presenting to the ED with complaints of a rash that is itchy in nature to his right foot that started at the 4th toe and has now spread to the 3rd toe. He reports that he was seen here on 11/25/2021 and diagnosed with a skin infection sent home with 2 antibiotics which include Keflex and doxycycline for 5 days he reports that he took both antibiotics as prescribed and he reports no improvement and he reports that has now spread to the 3rd toe. He reports that this initially started when he was at the beach he felt like something with over his foot or bit his toe although he did not see anything there. I discussed this case with Dr. Martinez and he agrees he does not believe that this appears fungal in nature he reports that it could possibly be a cellulitis infection versus an eczematous dermatitis. Therefore will obtain x-ray if x-ray negative will DC home with another course of antibiotics for 10 days and topical steroids and instructions to follow-up with Podiatry. Patient understands agrees with this plan. MDM - Skin/Abscess/Foreign Bdy Medical Records Attestation: I reviewed the patient's medical records. Imaging Data Right foot x-ray: Attestation: I personally reviewed and interpreted this imaging study as follows: Radiologist's impression: FINDINGS: There is no acute fracture or dislocation. No distal cortical erosive changes are seen. The joint spaces are unremarkable. The tarsal bones are normally aligned. There is an incidental type II accessory navicular bone. The tarsal bones are normally aligned. The soft tissues are unremarkable. XR/XR foot RT min 3V IMPRESSION: Unremarkable right foot. Specifically, no significant acute abnormality in the digits distally. Discharge Plan Discharge Clinical Impression: Cellulitis of foot, right, Contact dermatitis and eczema Patient Disposition: Home, Self-Care Instructions: Contact Dermatitis (ED), Cellulitis (ED) Prescriptions: New cephalexin 500 mg capsule 500 mg PO Q6H 10 Days Qty: 40 0RF doxycycline hyclate 100 mg tablet 100 mg PO BID 10 Days Qty: 20 0RF hydrocortisone 2.5 % ointment 1 appl topical QD-TID PRN (Reason: skin irritation) Qty: 454 0RF No Action ondansetron 4 mg tablet,disintegrating 4 mg PO ONCE PRN (Reason: nausea and vomiting) Qty: 10 0RF hydrocortisone acetate [Anusol-HC] 25 mg suppository 25 mg [place] BID Qty: 12 0RF cephalexin 500 mg capsule 500 mg PO Q12H 5 Days Qty: 10 0RF doxycycline hyclate 100 mg tablet 100 mg PO BID 5 Days Qty: 10 0RF Referrals: Rubens Yuen MD [Primary Care Provider] - Arnel Emmanuel [Physician] - 2 days (Call today or tomorrow to make a follow- up appointment within a week) Print Language: Cypriot
== END 2021-12-12 16:50 | disposition home or self-care (01) ==
PROVIDERS: Emergency Provider Emergency Medicine Emergency Medical Services; PCP Internal Medicine
DX: L03.115 Cellulitis of right lower limb (principal); L25.9 Unspecified contact dermatitis, unspecified cause; J45.909 Unspecified asthma, uncomplicated; Z86.16 Personal history of COVID-19
CPT/HCPCS: 73630; 99283; 99284

== ENCOUNTER 2023-03-11 15:42 | Outpatient (AMB) | payer OTHER, SELFPAY ==
--- NOTE | 2023-03-11 15:49 | MHC.PC.OV ---
Vital Signs 03/11/23 15:51 Height 5 ft 6 in Weight 149 lb 2 oz BMI 24.1 BP 100/60 Blood Pressure Location Lt brachial Position Sitting Pulse 52 Pulse Source Pulse Oximeter Pulse Oximetry (%) 98 Oxygen Delivery Method Room Air Intake Visit Reasons: rectal bleeding for past few weeks Intake Note: Patient is here today for rectal bleeding for past few weeks. History ulcer possible flure up. Customs And Immigration Officer Required: No Orthopedics Teacher: Not Required per policy Accompanied by: Self / Same As Patient Allergies No Known Allergies [No Known Allergies*] Allergy (Verified 03/14/23 16:45) Medication List - Last Reconciled 03/14/23 by Daniel Hernandez MD No Known Home Meds Tobacco use date assessed: 03/11/23 Dental Screening Dental Screen Date: 03/11/23 Did you have a dental visit in the last 12 months?: Yes Did you have a dental problem in the last 6 months where you did not have access to dental care?: No Was dental information given to patient?: Patient has dentist HPI rectal bleeding for past few weeks HPI Details 42-year-old male presents to the office for a sick visit. His physician is not available and I am covering. Patient reports that he is bleeding per rectum over the past 2 weeks. He noticed blood in the toilet bowl on several occasions. He does not stain his underwear. He has had history of hemorrhoids in the past and the medication does not seem to be working. No abdominal pain or weight loss. Recently patient has been constipated [facility] Medical History (Updated 03/11/23 @ 16:22 by Daniel Hernandez MD) Asthma COVID-19 Surgical History (Updated 03/11/23 @ 15:57 by GORDON [place]) History of facial surgery History of shoulder surgery Social History (Updated 03/11/23 @ 15:58 by GORDON [place]) Housing: Apartment Alcohol intake: never Patient Tobacco Use Status: Current everyday Tobacco user Tobacco use type: Cigarette Cigarettes Per Day: 1 e-Cigarette/Vaping Use: Never Used Second Hand Smoke Exposure: Yes Substance Use Type: Marijuana service: No Current occupational status: employed Cognitive needs: No Hearing needs: No Vision needs: No Questionnaire PHQ-9 Over the last 2 weeks, how often have you been bothered by any of the following problems? 1. Little interest or pleasure in doing things: several days 2. Feeling down, depressed, or hopeless: several days 3. Trouble falling or staying asleep, or sleeping too much: several days 4. Feeling tired or having little energy: not at all 5. Poor appetite or overeating: nearly every day 6. Feeling bad about yourself - or that you are a failure or have let yourself or your family down: not at all 7. Trouble concentrating on things, such as reading the newspaper or watching television: not at all 8. Moving or speaking so slowly that other people could have noticed. Or the opposite - being so fidgety or restless that you have been moving around a lot more than usual: not at all 9. Thoughts that you would be better off or of hurting yourself in some way: not at all Total score: 6 Source: Developed by Drs. Nate Antonio, Gayathri Espino, Rj Burr and colleagues, with an educational radha from [employer]. Thrive Questionnaire Date Thrive assessed: 03/11/23 I am a: Patient What is your living situation today?: I have a steady place to live Within the past 12 months, did the food you bought not last and you didn't have the money to get more?: Never true Within the past 12 months, did you worry whether your food would run out before you got money to buy more?: Never true Do you have trouble paying for medicines?: No Do you have trouble getting transportation to medical appointments?: No Do you have trouble paying your heating and electricity bill?: No Do you have trouble taking care of your child, family member or friend?: No Do you have trouble with day-to-day activities such as bathing, preparing meals, shopping, managing finances, etc.?: No Are you currently unemployed and looking for a job?: No Are you interested in more education?: No Currently or been in a relationship where the following occur: no concerns reported AUDIT C Alcohol Use Questionnaire (AUDIT-C) 1. How often do you have a drink containing alcohol?: Never Total Score: 0 ROSIO-7 AMB Questionnaire ROSIO-7 Date ROSIO - 7 assessed: 03/11/23 Feeling nervous, anxious, or on edge: 1 = Several days Not being able to stop or control worryin = Several days Worrying too much about different things: 1 = Several days Trouble relaxin = More than half the days Being so restless that it is hard to sit still: 1 = Several days Becoming easily annoyed or irritable: 0 = Not at all Feeling afraid as if something awful might happen: 0 = Not at all Total ROSIO-7 score (0-4 normal; 5-9 mild; 10-14 moderate; 15-21 severe): 6 Source: Developed by Drs. Nate Antonio, Gayathri Espino, Rj Burr and colleagues, with an educational radha from [employer]. Physical exam (Primary Care) Vital Signs: Last Vital Signs Pulse 52 03/11/23 15:51 BP 100/60 03/11/23 15:51 Pulse Ox 98 03/11/23 15:51 Oxygen Delivery Method Room Air 03/11/23 15:51 BMI result Body Mass Index 24.1 Tobacco/Smoking Status: Tobacco use Status Tobacco use date assessed 03/11/23 03/11/23 16:00 Patient Tobacco Use Status Current everyday Tobacco 03/11/23 16:00 Tobacco use type Cigarette 03/11/23 16:00 e-Cigarette/Vaping Use Never Used 03/11/23 16:00 PHQ-9: PHQ-9 Score PHQ-9: Total score 6 03/11/23 16:00 Thrive Assessment: Date of Thrive Assessment Date Thrive assessed 03/11/23 03/11/23 16:00 Currently or been in a relationship where the following occur: no concerns reported Const General: cooperative, healthy appearing and comfortable [facility] Head: Yes normal to inspection and Yes atraumatic Eyes General: appearance normal, both eyes and all related structures Neck Neck: Yes normal visual inspection and Yes full ROM Chest Chest palpation & inspection: normal inspection of the chest GI Palpation (GI): Soft to palpation and No hepatosplenomegaly present Extrem General: Yes normal to inspection and Yes full ROM Assessment and Plan Assessment & Plan (1) Hematochezia: Code(s): K92.1 - Melena Plan: A referral to general surgery has been made. Patient would benefit from hemorrhoidectomy. Orders: Orders Basic Metabolic Panel 03/12/23 K92.1 - Melena Liver Panel 03/12/23 K92.1 - Melena Complete Blood Count no Diff 03/12/23 K92.1 - Melena Coding Level of Care Code Est Pt Level 3 (45813) Diagnoses Hematochezia K92.1
[2023-03-11 15:51] VITALS: BP 100/60; PULSE 52; O2SAT 98; BMI 24.1
== END 2023-03-11 16:24 | disposition home or self-care (01) ==
LOC: HO.HMGH 15:42
PROVIDERS: PCP Internal Medicine; Visit Provider Internal Medicine
DX: K92.1 Melena (principal)
CPT/HCPCS: 99213

== ENCOUNTER 2023-03-12 07:34 | Outpatient (REF) | payer OTHER, SELFPAY ==
[2023-03-12 08:19] LABS: Hemoglobin 16.1 g/dl (14.0-18.0); Mean Corpuscular HGB Conc 32.2 g/dl (31.0-36.0); Mean Corpuscular Hemoglobin 28.8 pg (27.0-33.0); Mean Corpuscular Volume 89.3 fL (80.0-98.0); Mean Platelet Volume 10.8 fL (9.4-12.4); Platelet Count 256 X10*3/uL (160-400); Red Cell Distribution Width 13.2 % (11.0-16.0); White Blood Count 8.6 X10*3/uL (4.8-10.8)
[2023-03-12 08:51] LABS: Alanine Aminotransferase 77 U/L (0-40); Albumin Level 4.1 g/dL (3.5-5.0); Alkaline Phosphatase 57 U/L (39-117); Anion Gap 15 (12-20); Aspartate Amino Transferase 43 U/L (5-37); Bilirubin Direct 0.3 mg/dL (0.0-0.5); Bilirubin Total 0.7 mg/dL (0.0-1.0); Blood Urea Nitrogen 12 mg/dL (9-16); Carbon Dioxide 27 mmol/L (22-29); Chloride 107 mmol/L (96-108); Estimated Glomerular Filt Rate > 60; Glucose Random 96 mg/dL (60-115); Sodium 144 mmol/L (135-145); Total Protein 7.6 g/dL (6.5-8.0)
== END 2023-03-12 07:35 | disposition home or self-care (01) ==
LOC: HO.LAB 07:34
PROVIDERS: PCP Internal Medicine; Visit Provider Internal Medicine
DX: K92.1 Melena (principal)
CPT/HCPCS: 36415; 80048; 80076; 85027

== ENCOUNTER 2023-06-24 09:35 | Outpatient (AMB) | payer OTHER, SELFPAY ==
[2023-06-24 09:43] VITALS: BP 120/80; PULSE 70; O2SAT 99; BMI 24.9
--- NOTE | 2023-06-24 09:43 | MHC.PC.OV ---
Vital Signs 06/24/23 09:43 Height 5 ft 6 in Weight 154 lb 2 oz BMI 24.9 BP 120/80 Blood Pressure Location Lt brachial Position Sitting Pulse 70 Pulse Source Pulse Oximeter Pulse Oximetry (%) 99 Oxygen Delivery Method Room Air Intake Visit Reasons: rectal bleeding Housekeeper Caregiver Required: Yes Accompanied by: Self / Same As Patient Allergies No Known Allergies [No Known Allergies*] Allergy (Verified 06/24/23 09:44) Tobacco use date assessed: 06/24/23 Dental Screening Dental Screen Date: 06/24/23 Did you have a dental visit in the last 12 months?: Yes Did you have a dental problem in the last 6 months where you did not have access to dental care?: No HPI HPI Comments History of Present Illness Details 43-year-old male past medical history significant for asthma, hematochezia and history of hemorrhoids. Patient was seen in March by Dr. Richmond and was referred to general surgery at that time for hemorrhoidectomy however I do not see a patient Followed up. Patient states had a issue with his insurance so he was unable to go for consult. Patient reports hemmrhiod hx, continues have rectal bleeding 1x a day, blair red blood on the tissue and in toilet. small/moderate amount. Patient reports low energy at times, labs ordered to evaluated for anemia. Destiny ESTRADA present during external rectal exam. External hemorrhoid noted. Referral entered to general surgery. [facility] Medical History (Updated 06/24/23 @ 10:00 by DOC Benitez) Asthma COVID-19 Surgical History History of shoulder surgery History of facial surgery Social History (Updated 03/11/23 @ 15:58 by GORDON [place]) Housing: Apartment Alcohol intake: never Patient Tobacco Use Status: Current everyday Tobacco user Tobacco use type: Cigarette Cigarettes Per Day: 1 e-Cigarette/Vaping Use: Never Used Second Hand Smoke Exposure: Yes Substance Use Type: Marijuana service: No Current occupational status: employed Cognitive needs: No Hearing needs: No Vision needs: No Questionnaire PHQ-9 Over the last 2 weeks, how often have you been bothered by any of the following problems? 1. Little interest or pleasure in doing things: several days 2. Feeling down, depressed, or hopeless: several days 3. Trouble falling or staying asleep, or sleeping too much: several days 4. Feeling tired or having little energy: not at all 5. Poor appetite or overeating: nearly every day 6. Feeling bad about yourself - or that you are a failure or have let yourself or your family down: not at all 7. Trouble concentrating on things, such as reading the newspaper or watching television: not at all 8. Moving or speaking so slowly that other people could have noticed. Or the opposite - being so fidgety or restless that you have been moving around a lot more than usual: not at all 9. Thoughts that you would be better off or of hurting yourself in some way: not at all Total score: 6 Source: Developed by Drs. Nate Antonio, Gayathri Espino, Rj Burr and colleagues, with an educational radha from [employer]. Thrive Questionnaire Date Thrive assessed: 06/24/23 I am a: Patient What is your living situation today?: I have a steady place to live Within the past 12 months, did the food you bought not last and you didn't have the money to get more?: Never true Within the past 12 months, did you worry whether your food would run out before you got money to buy more?: Never true Do you have trouble paying for medicines?: No Do you have trouble getting transportation to medical appointments?: No Do you have trouble paying your heating and electricity bill?: No Do you have trouble taking care of your child, family member or friend?: No Do you have trouble with day-to-day activities such as bathing, preparing meals, shopping, managing finances, etc.?: No Are you currently unemployed and looking for a job?: No Are you interested in more education?: No Please select the resources that you would like help with: None Currently or been in a relationship where the following occur: no concerns reported AUDIT C Alcohol Use Questionnaire (AUDIT-C) 1. How often do you have a drink containing alcohol?: Never Total Score: 0 ROSIO-7 AMB Questionnaire ROSIO-7 Date ROSIO - 7 assessed: 06/24/23 Feeling nervous, anxious, or on edge: 1 = Several days Not being able to stop or control worryin = Several days Worrying too much about different things: 1 = Several days Trouble relaxin = More than half the days Being so restless that it is hard to sit still: 1 = Several days Becoming easily annoyed or irritable: 0 = Not at all Feeling afraid as if something awful might happen: 0 = Not at all Total ROSIO-7 score (0-4 normal; 5-9 mild; 10-14 moderate; 15-21 severe): 6 Source: Developed by Drs. Nate Antonio, Gayathri Espino, Rj Burr and colleagues, with an educational radha from [employer]. Review of Systems Const Denies chills, Denies fatigue, Denies fever(s) and Denies poor appetite Eyes Denies no additional complaints ENT Reports Normal hearing present Card Denies chest pain, Denies syncope, Denies rapid heart rate and Denies dyspnea Resp Denies cough and Denies dyspnea GI Denies change in stool character, Denies constipation, Denies diarrhea, Denies nausea, Denies vomiting and Reports other (bleeding hemmorhoid ) Denies dysuria, Denies urinary frequency and Denies urinary urgency Neuro Reports Normal hearing present, Denies confusion and Denies syncope Psych Denies confusion Endo Denies fatigue Physical exam (Primary Care) Vital Signs: Last Vital Signs Pulse 70 06/24/23 09:43 BP 120/80 06/24/23 09:43 Pulse Ox 99 06/24/23 09:43 Oxygen Delivery Method Room Air 06/24/23 09:43 BMI result Body Mass Index 24.9 Tobacco/Smoking Status: Tobacco use Status Tobacco use date assessed 06/24/23 06/24/23 09:44 Patient Tobacco Use Status Current everyday Tobacco 06/24/23 09:44 Tobacco use type Cigarette 06/24/23 09:44 e-Cigarette/Vaping Use Never Used 06/24/23 09:44 PHQ-9: PHQ-9 Score PHQ-9: Total score 6 06/24/23 12:17 Thrive Assessment: Date of Thrive Assessment Date Thrive assessed 06/24/23 06/24/23 09:49 Currently or been in a relationship where the following occur: no concerns reported Const General: No confusion Orientation/consciousness: No confusion HENMT Head: Yes normocephalic and Yes atraumatic Eyes Conjunctivae: conjunctivae normal Chest Chest palpation & inspection: normal inspection of the chest Resp Effort & Inspection: normal respiratory effort Auscultation: clear to auscultation bilaterally, no crackles, no rhonchi and no wheezes Cardio Rate: regular rate Rhythm: regular rhythm Heart sounds: S1 normal heart sound present and S2 normal heart sound present GI Inspection: Yes normal to inspection Neuro General: No confusion Cranial nerves: Yes Normal hearing present Extrem General: No edema Assessment and Plan Assessment & Plan (1) Hematochezia: Code(s): K92.1 - Melena (2) Bleeding hemorrhoid: Code(s): K64.9 - Unspecified hemorrhoids Plan: Referral entered to general surgery, patient would benefit from hemorrhoidectomy. Orders: Orders Complete Blood Count Auto Diff Today K92.1 - Melena Comprehensive Met. Panel Today K92.1 - Melena Referrals General Surgery Referral K64.9 - Unspecified hemorrhoids Coding Level of Care Code Est Pt Level 3 (40448) Diagnoses Hematochezia K92.1 Bleeding hemorrhoid K64.9
== END 2023-06-24 10:04 | disposition home or self-care (01) ==
LOC: HO.HMGH 09:35
PROVIDERS: PCP Internal Medicine; Visit Provider Nurse Practitioner Family
DX: K92.1 Melena (principal); K64.9 Unspecified hemorrhoids
CPT/HCPCS: 99213

== ENCOUNTER 2023-06-24 10:21 | Outpatient (REF) | payer OTHER, SELFPAY ==
[2023-06-24 10:31] LABS: MANUAL DIFF FLAG NO
[2023-06-24 10:51] LABS: Basophils Absolute Auto 0.1 X10*3/uL (0.0-0.2); Basophils Percent Auto 0.7 % (0-2); Eosinophils Absolute Auto 0.5 X10*3/uL (0.0-0.4); Eosinophils Percent Auto 4.6 % (0-4); Hematocrit 48.4 % (42.0-52.0); Hemoglobin 15.9 g/dl (14.0-18.0); Imm Gran Abs Auto 0.18 X10*3/uL (0.00-0.03); Imm Gran Pct Auto 1.8 % (0.0-0.4); Lymphocytes Absolute Auto 2.6 X10*3/uL (1.2-4.9); Lymphocytes Percent Auto 26.8 % (20-40); Mean Corpuscular HGB Conc 32.9 g/dl (31.0-36.0); Mean Corpuscular Hemoglobin 28.6 pg (27.0-33.0); Mean Corpuscular Volume 87.2 fL (80.0-98.0); Mean Platelet Volume 10.9 fL (9.4-12.4); Monocytes Percent Auto 9.7 % (2-11); Neutrophils Absolute Auto 5.5 x10*3/uL (2.0-8.3); Neutrophils Percent Auto 56.4 % (45-73); Platelet Count 312 X10*3/uL (160-400); Red Blood Count 5.55 X10*6/uL (4.60-5.80); Red Cell Distribution Width 13.3 % (11.0-16.0); White Blood Count 9.8 X10*3/uL (4.8-10.8)
[2023-06-24 11:18] LABS: Alanine Aminotransferase 112 U/L (0-40); Albumin Level 4.4 g/dL (3.5-5.0); Alkaline Phosphatase 61 U/L (39-117); Anion Gap 10 (12-20); Aspartate Amino Transferase 59 U/L (5-37); Bilirubin Total 0.6 mg/dL (0.0-1.0); Blood Urea Nitrogen 16 mg/dL (9-16); Calcium 10.4 mg/dL (8.4-10.2); Carbon Dioxide 30 mmol/L (22-29); Chloride 103 mmol/L (96-108); Estimated Glomerular Filt Rate > 60; Glucose Random 104 mg/dL (60-115); Potassium 4.3 mmol/L (3.3-5.1); Sodium 139 mmol/L (135-145); Total Protein 8.3 g/dL (6.5-8.0)
== END 2023-06-24 10:22 | disposition home or self-care (01) ==
LOC: HO.LAB 10:21
PROVIDERS: PCP Nurse Practitioner Family; Visit Provider Nurse Practitioner Family
DX: K92.1 Melena (principal)
CPT/HCPCS: 36415; 80053; 85025

== ENCOUNTER 2023-07-05 14:27 | Outpatient (AMB) | payer OTHER, SELFPAY ==
--- NOTE | 2023-07-05 14:31 | MHC.OFFVIS ---
Intake Vital Signs 07/05/23 14:37 Height 5 ft 6 in Weight 153 lb BMI 24.7 BP 127/73 Blood Pressure Location Lt brachial Position Sitting Pulse 74 Intake Visit Reasons: Unspecified hemorrhoids Intake Note: Pt c/o: admits to bleeding in toilet, during bm, all the time for the past few months, feels prolapse and has to place it back in, constipation, straining, headaches denies nausea, diarrhe, vomit Ice Cream Shop Associate Required: Yes Ice Cream Shop Associate Language: New Car Inspector Name: Pat LEYVA Information Interpreted: non-clinical & clinical Airborne Operations: Airborne Operations Present Accompanied by: Self / Same As Patient Allergies No Known Allergies [No Known Allergies*] Allergy (Verified 07/05/23 14:36) Medication List - Last Reconciled 07/05/23 by Manoj Holly MD No Known Home Meds HPI Unspecified hemorrhoids HPI Details 43-year-old male referred for hemorrhoid issues. He describes bleeding per hemorrhoids with bowel movements. This happens almost every day. He says that sometimes, he would also see blood on his underwear even without a bowel movement. He denies significant pain and swelling but does state that sometimes his hemorrhoids , with bowel movements and he has to push his back frequently. He admits to history of chronic constipation. He has a history of right eye surgery and right clavicular surgery in the past after an accident. [facility] Medical History Asthma COVID-19 Surgical History History of shoulder surgery History of facial surgery Housing: Apartment Alcohol intake: never Patient Tobacco Use Status: Current everyday Tobacco user Tobacco use type: Cigarette Cigarettes Per Day: 1 e-Cigarette/Vaping Use: Never Used Second Hand Smoke Exposure: Yes Substance Use Type: Marijuana service: No Current occupational status: employed Cognitive needs: No Hearing needs: No Vision needs: No Review of Systems Const Denies chills and Denies fever(s) Card Denies chest pain, Denies dyspnea and Denies dyspnea on exertion Resp Denies cough, Denies dyspnea and Denies dyspnea on exertion GI Reports hematochezia, Denies change in bowel habits and Reports constipation Denies hematuria and Denies difficulty urinating Musc Denies back pain and Denies limited range of motion Neuro Denies focal weakness and Denies convulsions Psych Denies depression and Denies mood swings Physical Exam Vital Signs: Last Vital Signs Pulse 74 07/05/23 14:37 BP 127/73 07/05/23 14:37 BMI result Body Mass Index 24.7 Const General: comfortable and no acute distress Orientation/consciousness: patient oriented x3 Neck Neck: Yes no lymphadenopathy Resp Auscultation: clear to auscultation bilaterally Cardio Rhythm: regular rhythm GI Other: External hemorrhoids, left and right, anoscopy done Palpation (GI): Soft to palpation, nontender and no guarding Neuro General: patient oriented x3 Office Procedures Anoscopy He was in dora-knife position. The anoscope was gently inserted. A full examination of the anal canal was done. He did have a bulky internal external column on the left side. He had smaller hemorrhoids on the right. There were no other lesions. There was no active bleeding. There was no ulceration. There was no induration on digital exam [id number] Assessment & Plan Assessment & Plan (1) Bleeding hemorrhoid: Code(s): K64.9 - Unspecified hemorrhoids Plan: He presents with frequent bleeding with his hemorrhoids. He wants to proceed with hemorrhoidectomy. I had a long discussion with him about the technique of exam under anesthesia hemorrhoidectomy. I discussed with him the risks including but not limited to bleeding, infections, postop pain, poor healing, sphincter injury, as well as the benefits and alternatives. I discussed with him what to expect postoperatively. He understands and wants to proceed. I will also describes him a stool softener because of his chronic constipation. Coding Level of Care Code New Pt Level 3 (68363) Diagnoses Bleeding hemorrhoid K64.9 CPT Codes Details - CPT: 21560-[id number] ([id number])
[2023-07-05 14:37] VITALS: BP 127/73; PULSE 74; BMI 24.7
== END 2023-07-05 14:57 | disposition home or self-care (01) ==
LOC: HO.HGS 14:27
PROVIDERS: PCP Nurse Practitioner Family; Referring Provider Nurse Practitioner Family; Visit Provider Surgery
DX: K64.9 Unspecified hemorrhoids (principal)
CPT/HCPCS: 46600; 99203

== ENCOUNTER → 2023-07-05 14:27 | Outpatient (BNVA) | payer OTHER, SELFPAY | PROVIDERS: PCP Nurse Practitioner Family; Referring Provider Nurse Practitioner Family; Visit Provider Surgery | DX: K64.9 Unspecified hemorrhoids (principal) | CPT/HCPCS: 46600; 99202 ==

== ENCOUNTER 2023-07-15 09:35 | Outpatient (REF) | payer SELFPAY ==
[2023-07-15 11:16] LABS: HBS Num1 10.88 mIU/mL (0-7.99); HBc Num1 0.07 S/CO (0.00-0.79); HBsAGNum1 0.42 S/CO (0.00-0.99); Hepatitis B Core Antibody Nonreactive (Nonreactive); Hepatitis B Surface Antigen Negative (Negative); ~HepC Num1 12.52 S/CO (0.00-0.79); ~Hepatitis A Antibody IgM Nonreactive (Nonreactive); ~Hepatitis C Antibody Reactive (Nonreactive)
[2023-07-15 12:40] LABS: HBS Num2 11.24 mIU/mL (0-7.99); HBS Num3 10.87 mIU/mL (0-7.99)
[2023-07-15 12:41] LABS: ~Hepatitis B Surface Antibody GRAYZONE (Nonreactive)
== END 2023-07-15 09:36 | disposition home or self-care (01) ==
LOC: HO.LAB 09:35
PROVIDERS: PCP Nurse Practitioner Family; Visit Provider Nurse Practitioner Family
DX: R79.89 Other specified abnormal findings of blood chemistry (principal)
CPT/HCPCS: 36415; 86704; 86706; 86709; 86803; 87340

== ENCOUNTER 2023-07-19 13:40 | Outpatient (REF) | payer SELFPAY ==
[2023-07-19 15:19] LABS: Alanine Aminotransferase 70 U/L (0-40); Albumin Level 4.4 g/dL (3.5-5.0); Alkaline Phosphatase 53 U/L (39-117); Aspartate Amino Transferase 36 U/L (5-37); Bilirubin Direct 0.2 mg/dL (0.0-0.5); Bilirubin Total 0.4 mg/dL (0.0-1.0); Total Protein 7.8 g/dL (6.5-8.0)
[2023-07-21 18:28] LABS: HCV RNA PCR Qn 6.59 Log IU/mL (NOT DETECTED)
[2023-07-28 16:38] LABS: HCV Genotype LiPA 1a
== END 2023-07-19 13:41 | disposition home or self-care (01) ==
LOC: HO.LAB 13:40
PROVIDERS: PCP Nurse Practitioner Family; Visit Provider Nurse Practitioner Family
DX: R79.89 Other specified abnormal findings of blood chemistry (principal)
CPT/HCPCS: 36415; 80076; 87522; 87902

== ENCOUNTER 2023-07-21 09:43 | Outpatient (REF) | payer SELFPAY ==
[2023-07-29 06:48] LABS: HCV RNA PCR Qn 802000 IU/mL (NOT DETECTED)
[2023-08-05 17:23] LABS: HCV Genotype LiPA 1a
== END 2023-07-21 09:44 | disposition home or self-care (01) ==
LOC: HO.LAB 09:43
PROVIDERS: PCP Internal Medicine; Visit Provider Nurse Practitioner Family
DX: R76.8 Other specified abnormal immunological findings in serum (principal)
CPT/HCPCS: 36415; 87522; 87902

== ENCOUNTER 2023-08-04 15:01 | Outpatient (AMB) | payer SELFPAY ==
--- NOTE | 2023-08-04 14:48 | MHC.OFFVIS ---
Intake Vital Signs 08/04/23 14:58 Height 5 ft 6 in Weight 162 lb BMI 26.1 BP 120/70 Position Sitting Pulse 90 Pulse Source Pulse Oximeter Pulse Oximetry (%) 99 Oxygen Delivery Method Room Air Intake Visit Reasons: Ref.Betsy,Hep -C ,without hepatic coma Elementary Science Teacher Required: Yes Elementary Science Teacher Name: Lloyd Webster CMA Information Interpreted: clinical only Allergies No Known Allergies [No Known Allergies*] Allergy (Verified 08/04/23 14:59) HPI Ref.Betsy,Hep -C ,without hepatic coma HPI Details He has diagnosis of Hepatitis C. He has viral load of 3,930,000 on 07/19. He has no complaints or signs of advanced liver disease. [facility] Medical History Asthma COVID-19 Surgical History History of shoulder surgery History of facial surgery Social History Housing: Apartment Alcohol intake: never Patient Tobacco Use Status: Current everyday Tobacco user Tobacco use type: Cigarette Cigarettes Per Day: 1 e-Cigarette/Vaping Use: Never Used Second Hand Smoke Exposure: Yes Substance Use Type: Marijuana service: No Current occupational status: employed Cognitive needs: No Hearing needs: No Vision needs: No Review of Systems Const All systems reviewed & are unremarkable except as noted in HPI and below Physical Exam Vital Signs: Last Vital Signs Pulse 90 08/04/23 14:58 BP 120/70 08/04/23 14:58 Pulse Ox 99 08/04/23 14:58 Oxygen Delivery Method Room Air 08/04/23 14:58 BMI result Body Mass Index 26.1 Const General: cooperative Orientation/consciousness: patient oriented x3 HEENT Head: Yes normal to inspection Mouth: Normal oral and palatal mucosa present Eyes General: appearance normal, both eyes and all related structures Pupils: Equal, round and reactive pupils present Resp Effort & Inspection: normal respiratory effort Cardio Rate: regular rate Rhythm: regular rhythm GI Palpation (GI): Soft to palpation and nontender General: Yes no CVA tenderness Back/Spine/Pelvis Back: no CVA tenderness Skin General skin exam: no rashes or lesions noted Neuro General: patient oriented x3 Cranial nerves: Yes CN's II-XII intact bilaterally and Yes Equal, round and reactive pupils present Extrem General: Yes normal to inspection Psych Appearance: grossly normal Assessment & Plan Assessment & Plan (1) Hepatitis C: Comment: He has active disease and should receive treatment. Code(s): B19.20 - Unspecified viral hepatitis C without hepatic coma Plan: Would check fibrosis score. Treat when information back and be sure there is no cirrhosis. Orders: Orders HIV Ab/Ag 08/04/23 B19.20 - Unspecified viral hepatitis C without hepatic coma T Spot TB 08/04/23 B19.20 - Unspecified viral hepatitis C without hepatic coma Syphilis Screen 08/04/23 B19.20 - Unspecified viral hepatitis C without hepatic coma Coding Level of Care Code New Pt Level 3 (21555) Diagnoses Hepatitis C B19.20
[2023-08-04 14:58] VITALS: BP 120/70; PULSE 90; O2SAT 99; BMI 26.1
== END 2023-08-04 15:25 | disposition home or self-care (01) ==
PROVIDERS: PCP Internal Medicine; Visit Provider Internal Medicine
DX: B19.20 Unspecified viral hepatitis C without hepatic coma (principal)
CPT/HCPCS: 99203

== ENCOUNTER 2023-08-04 15:01 | Outpatient (REF) | payer SELFPAY ==
[2023-08-05 07:55] LABS: Syphilis Screen Nonreactive (Nonreactive)
[2023-08-05 07:58] LABS: HIV AB/AG Nonreactive (Nonreactive); HIV Num 1 0.08 S/CO (0.00-0.99)
[2023-08-06 21:28] LABS: TS Negative Control Passed; TS Panel A 1; TS Panel B 0; TS Positive Control Passed; TSpotTB Negative (Negative)
[2023-08-07 15:43] LABS: HCV RNA PCR Qn 5.97 Log IU/mL (NOT DETECTED)
[2023-08-12 16:09] LABS: HCV Genotype LiPA 1a
== END 2023-08-04 15:02 | disposition home or self-care (01) ==
LOC: HO.LAB 15:01
PROVIDERS: Absent Provider Nurse Practitioner Family; PCP Internal Medicine; Visit Provider Internal Medicine
DX: B19.20 Unspecified viral hepatitis C without hepatic coma (principal)
CPT/HCPCS: 36415; 86481; 86780; 87389; 87522; 87902; 99202

== ENCOUNTER 2023-08-20 07:53 | Day surgery (SDC) | payer OTHER, SELFPAY ==
[2023-08-17 11:03] VITALS: BMI 24.9
--- NOTE | 2023-08-18 12:50 | HO.ANESPROP2 ---
Documented by User: Anel Silva NP 08/18/23 13:00 HPI - Anesthesia Eval Consult details Narrative: 43yo M for ?EUA,Hemorrhoidectomy Recent Hep C diagnosis. Has had [facility] ID consult. No signs of advanced liver disease. In the middle of w/u before starting med tx. PMFSH Active Problems Active Problems: All Active Problems (Updated 08/15/23 @ 23:34 by Keyla Laughlin MD) Hepatitis C (Acute) Hepatitis C antibody positive in blood (Acute) Elevated LFTs (Acute) Bleeding hemorrhoid (Acute) Hematochezia (Acute) Tinea pedis (Acute) Asthma (Acute) COVID-19 (Acute) COVID-19 (Acute) Past Medical History Medical History Asthma COVID-19 Surgical History Surgical History History of shoulder surgery History of facial surgery Social History Social History Housing: Apartment Alcohol intake: never Patient Tobacco Use Status: Never used Tobacco Tobacco use type: Cigarette Cigarettes Per Day: 1 e-Cigarette/Vaping Use: Never Used Second Hand Smoke Exposure: Yes Use of substances other than those prescribed or required for medical reasons: Yes Substance Use Type: Marijuana Substance Use Frequency: Daily Are you DNR?: No Advance Directives: No Advance Directives Information Provided: Yes service: No Current occupational status: employed Cognitive needs: No Hearing needs: No Vision needs: No Meds Allergies Allergy/AdvReac Type Severity Reaction Status Date / Time No Known Allergies Allergy Verified 08/20/23 08:15 [No Known Allergies*] Home Medications Medication Instructions Recorded Confirmed Last Taken Type No Known Home Meds 03/14/23 08/20/23 Unknown History Exam Height,Weight and Vital Signs: Height 5 ft 6 in Weight 69.853 kg Pertinent Lab Results Pertinent Lab Results: Laboratory Tests 06/24/23 06/24/23 07/19/23 10:30 10:30 13:49 WBC 9.8 Hgb 15.9 Hct 48.4 Plt Count 312 Sodium 139 Potassium 4.3 Chloride 103 Carbon Dioxide 30 H Anion Gap 10 L BUN 16 Creatinine 0.83 Calcium 10.4 H Total Bilirubin 0.4 Direct Bilirubin 0.2 AST 36 ALT 70 H Alkaline Phosphatase 53 Total Protein 7.8 Albumin 4.4 Assessment and Plan Assessment Anesthesia Assessment: Chart Reviewed Documented by User: Kelly Rebolledo MD 08/20/23 08:39 PMFSH Past Medical History Medical History Asthma COVID-19 Family History Family history of problems with anesthesia: No Surgical History Surgical History History of shoulder surgery History of facial surgery History of Problems with Anesthesia: No Social History Social History Housing: Apartment Alcohol intake: never Patient Tobacco Use Status: Never used Tobacco Tobacco use type: Cigarette Cigarettes Per Day: 1 e-Cigarette/Vaping Use: Never Used Second Hand Smoke Exposure: Yes Use of substances other than those prescribed or required for medical reasons: Yes Substance Use Type: Marijuana Substance Use Frequency: Daily Are you DNR?: No Advance Directives: No Advance Directives Information Provided: Yes service: No Current occupational status: employed Cognitive needs: No Hearing needs: No Vision needs: No Meds Allergies Allergy/AdvReac Type Severity Reaction Status Date / Time No Known Allergies Allergy Verified 08/20/23 08:15 [No Known Allergies*] Home Medications Medication Instructions Recorded Confirmed Last Taken Type No Known Home Meds 03/14/23 08/20/23 Unknown History Exam Airway Mallampati Class: II TM Dist: <=3cm Neck ROM: Full Heart: rrr Lungs: cta Assessment and Plan Assessment Anesthesia Assessment: Anesthesia Plan Discussed and Smoking Cess. Discussed Final Anesthetic Review Family History of Problems with Anesthesia: No History of Problems with Anesthesia: No NPO: Yes ASA Class: III Final Preanesthetic Review: No Changes in Pt Med Stat, Meds/Allgs Chart Reviewed, Consent Obtained/Reviewed and Anes Risks/Benef Reviewed Patient Risk: Intermediate Procedure Risk: Low Anesthetic Plan Anesthetic Plan: GA Disposition: Standard PACU
[2023-08-20 08:13] VITALS: BMI 25.5
[2023-08-20 08:32] VITALS: BP 117/76; PULSE 58; RESP 16; TEMP 36.2; O2SAT 98
[2023-08-20] MEDS: Lactated Ringers 1,000 ML 100 ML IVCONT (08:34)
--- NOTE | 2023-08-20 09:25 | MHC.SHP ---
Pre-Procedural Eval Section A Date of Service: 08/20/23 Section B Chief Complaint: Unspecified hemorrhoids Details of Present Illness: has had bleeding hemorrhoids Relevant Social History: None Present Medications: see Short Stay Collaborative assessment Medical History: Significant History (hep C) Allergies: Allergies Allergy/AdvReac Type Severity Reaction Status Date / Time No Known Allergies Allergy Verified 08/20/23 08:15 [No Known Allergies*] Review of Systems Sugical H&P ROS: Negative: Constitution, Cardiovascular, Respiratory, Neurological, Psychiatric, Hem-Onc, Allergic/Immunologic, Gastrointestinal, Genitourinary, Musculoskeletal, Integumentary, Endocrine and Eyes/Ears/Nose/Throat Exam Surgical H&P Exam: Normal: HEENT, Normal: Heart, Normal: Lungs, Normal: Extremities, Normal: Skin and Normal: Neurological and Significant Findings: Abdomen (hemorrhoids) Plan Diagnosis/Plan: Unchanged I have reviewed the history and physical and performed a pertinent physical examination on my patient. No changes have occurred unless specified. Time Spent With Patient Time: Total time managing care of this patient today ____ minutes.
--- NOTE | 2023-08-20 10:25 | W.PM.OPN ---
Operative Note Operative Note Date of Service: 08/20/23 Narrative: Preop diagnosis: Bleeding hemorrhoids Postop diagnosis: Bleeding hemorrhoids, internal external Procedure: Exam under anesthesia hemorrhoidectomy x2 columns Surgeon: Manoj Holly MD The patient is a 43-year-old male was had significant bleeding from his hemorrhoids which has been worsening. He was seen in the office and he was noted to have a large hemorrhoidal column mostly on the left. He wanted to proceed with hemorrhoidectomy because of his symptoms. He understood the technique of the procedure as well as the risks, benefits and alternatives. he was brought to the operating room. He was placed in prone dora-knife position under general anesthesia via endotracheal tube. The buttocks were retracted with wide tape laterally. The perianal area was prepped and draped in the usual sterile fashion. A surgical time-out was done. The patient received Cefotan 2 g IV preoperatively Examination of the anal orifice revealed bulky hemorrhoidal columns on both the left and the right side. These appeared to be a combination of external and prolapsing internal hemorrhoids. I inserted the Lesli Villegas retractor and examined the anal canal circumferentially. Again this mixed hemorrhoidal columns were seen on the left and right side. There were no other lesions. There was no fissure or any induration I applied a Leyva grasper at the hemorrhoidal column on the left to retract this out in the field. I made a ufhotn-wz-gyfta stitch at the pedicle past the dentate line using a chromic 3-0. I made an incision around this hemorrhoidal column to the perianal skin with a blade 15. I excised this hemorrhoidal column above the plane of the sphincters along this incision using scissors. I closed this incision with a running chromic 3-0 stitch. Additional multiple hemostatic [id number] chromic 3-0 sutures were placed for oozing areas along the incision This procedure was duplicated on the hemorrhoidal column on the right side. The hemorrhoidal column was retracted with a Leyva grasper. I made a akkddx-[id number] stitch at the pedicle with a chromic 3-0. I made an incision around this column to the perianal skin with a blade 15 and excised this above the plane of the sphincters using scissors. I closed this incision with a running chromic 3-0 stitch. Additional hemostatic sutures were placed for hemostasis. I related observed for hemostasis. Once hemostasis was confirmed, I proceeded to then apply a rolled Gelfoam in the anal canal for additional hemostasis I infiltrated the perianal area with Marcaine 0.5% for postop analgesia. The procedure was completed The patient tolerated procedure well. There were no immediate complications. Initial and final counts of sponges and instruments were correct. Estimated blood loss about 30 cc The patient was extubated without difficulty and transferred to the recovery room with stable vital signs.
[2023-08-20 10:35] VITALS: BP 121/81; PULSE 96; RESP 18; TEMP 36.5; O2SAT 98
[2023-08-20 10:40] VITALS: BP 124/80; PULSE 76; RESP 18; O2SAT 98
[2023-08-20 10:45] VITALS: BP 128/83; PULSE 68; RESP 18; O2SAT 99
[2023-08-20 10:50] VITALS: BP 120/83; PULSE 65; RESP 20; O2SAT 99
[2023-08-20 11:05] VITALS: BP 113/83; PULSE 64; RESP 20; TEMP 36.6; O2SAT 99
[2023-08-20] MEDS: oxyCODONE HCl Immed Release 5 MG TABLET PO (11:21)
== END 2023-08-20 12:15 | disposition home or self-care (01) ==
PROVIDERS: PCP Internal Medicine; Visit Provider Surgery
PROC: (CPT 46260; principal; 2023-08-20 10:30)
DX: K64.8 Other hemorrhoids (principal); K64.4 Residual hemorrhoidal skin tags; K59.09 Other constipation; J45.909 Unspecified asthma, uncomplicated; Z98.890 Other specified postprocedural states; Z86.16 Personal history of COVID-19
CPT/HCPCS: 46260; 88304; J0131; J1100; J1885; J2250; J2405; J2704; J2795; J3010

== ENCOUNTER → 2023-08-20 07:53 | Outpatient (BNV) | payer OTHER, SELFPAY | PROVIDERS: PCP Internal Medicine; Visit Provider Surgery | DX: K64.8 Other hemorrhoids (principal) | CPT/HCPCS: 46260 ==

== ENCOUNTER 2023-08-28 10:32 | Outpatient (REF) | payer OTHER, SELFPAY ==
[2023-09-02 15:48] LABS: FIB-ALT 73 U/L (9-46); FIB-Alpha-2-Macroglobulin 326 mg/dL (106-279); FIB-Apolipoprotein A1 111 mg/dL (94-176); FIB-GGT 103 U/L (3-95); FIB-Haptoglobin 173 mg/dL (43-212); FIB-Total Bilirubin 0.6 mg/dL (0.2-1.2); Liver Fibrosis Score 0.61; Liver Fibrosis Stage F3; Nec Inflam Act Grade A2; Nec Inflam Act Score 0.55
== END 2023-08-28 10:33 | disposition home or self-care (01) ==
LOC: HO.LAB 10:32
PROVIDERS: Absent Provider Internal Medicine; PCP Internal Medicine; Visit Provider Nurse Practitioner Family
DX: R76.8 Other specified abnormal immunological findings in serum (principal); B19.20 Unspecified viral hepatitis C without hepatic coma
CPT/HCPCS: 36415; 81596

== ENCOUNTER 2023-09-02 09:09 | Outpatient (AMB) | payer OTHER, SELFPAY ==
[2023-09-02 09:15] VITALS: BP 121/77; PULSE 98
--- NOTE | 2023-09-02 09:15 | MHC.OFFVIS ---
Intake Vital Signs 09/02/23 09:15 Weight 154 lb BP 121/77 Blood Pressure Location Rt brachial Position Standing Pulse 98 Intake Visit Reasons: S/P hemorrhoidectomy Intake Note: This patient presents for a post-op assessment status post hemorrhoidectomy. Pt c/o; reports mass, reports straining with bowel movements, reports constipation, reports rectal bleeding when constipated, reports last bm was 3 days ago, reports passing gas, reports feels sensation to have a bowel movements but when sits down unable to have a bm. Signs And Displays Salesperson Required: Yes Signs And Displays Salesperson Language: Cargo Station Worker Name: Nela Information Interpreted: non-clinical & clinical Accompanied by: Self / Same As Patient Allergies No Known Allergies [No Known Allergies*] Allergy (Verified 09/02/23 09:20) HPI S/P hemorrhoidectomy HPI Details He had undergone hemorrhoidectomy last 08/20/2022. He tolerated procedure well. He said that he feels much better. He denies any significant problems. He does state that he has some constipation the past 3 days. [facility] Medical History Asthma COVID-19 Surgical History History of hemorrhoidectomy (~08/20/23) History of shoulder surgery History of facial surgery Social History Housing: Apartment Alcohol intake: never Patient Tobacco Use Status: Never used Tobacco Tobacco use type: Cigarette Cigarettes Per Day: 1 e-Cigarette/Vaping Use: Never Used Second Hand Smoke Exposure: Yes Substance Use Type: Marijuana service: No Current occupational status: employed Cognitive needs: No Hearing needs: No Vision needs: No Review of Systems Const Denies chills and Denies fever(s) Card Denies chest pain, Denies dyspnea and Denies dyspnea on exertion Resp Denies cough, Denies dyspnea and Denies dyspnea on exertion GI Denies hematochezia and Denies change in bowel habits Denies hematuria and Denies difficulty urinating Musc Denies back pain and Denies limited range of motion Neuro Denies focal weakness and Denies convulsions Psych Denies depression and Denies mood swings Physical Exam Vital Signs: Last Vital Signs Pulse 98 09/02/23 09:15 BP 121/77 09/02/23 09:15 Const General: comfortable and no acute distress Resp Effort & Inspection: normal respiratory effort GI Other: Rectal exam shows the hemorrhoidectomy sites to be well healed, some residual edema of adjacent hemorrhoids, no signs of infection Assessment & Plan Assessment & Plan (1) Bleeding hemorrhoid: Code(s): K64.9 - Unspecified hemorrhoids Plan: Status post hemorrhoidectomy. He is doing very well. The surgical sites are well healed. I will start him on Colace and Metamucil for his constipation . He says that he has had no significant bleeding or any pain. He can therefore follow up on a p.r.n. basis. Medications: New docusate sodium (Colace) 100 mg PO BID 60 caps 2RF psyllium husk (Metamucil) mix into at least 8 oz of water or juice before administering 1 tbsp PO DAILY 660 grams 0RF Coding Level of Care Code Global (43221) Diagnoses Bleeding hemorrhoid K64.9
== END 2023-09-02 09:20 | disposition home or self-care (01) ==
LOC: HO.HGS 09:09
PROVIDERS: PCP Internal Medicine; Visit Provider Surgery
DX: K64.9 Unspecified hemorrhoids (principal)
CPT/HCPCS: 99024

== ENCOUNTER → 2023-09-02 09:09 | Outpatient (BNVA) | payer OTHER, SELFPAY | PROVIDERS: PCP Internal Medicine; Visit Provider Surgery | DX: Z09 Encounter for follow-up examination after completed treatment for conditions other than malignant neoplasm (principal); K64.9 Unspecified hemorrhoids; Z98.890 Other specified postprocedural states | CPT/HCPCS: 99212 ==

== ENCOUNTER 2023-09-14 11:19 | Outpatient (REF) | payer OTHER, SELFPAY ==
[2023-09-16 13:28] LABS: HCV RNA PCR Qn 1180000 IU/mL (NOT DETECTED); HCV RNA PCR Qn 6.07 Log IU/mL (NOT DETECTED)
[2023-09-22 18:08] LABS: HCV Genotype LiPA 1a
== END 2023-09-14 11:20 | disposition home or self-care (01) ==
LOC: HO.LAB 11:19
PROVIDERS: Visit Provider Nurse Practitioner Family
DX: Z13.89 Encounter for screening for other disorder (principal)
CPT/HCPCS: 36415; 87522; 87902

== ENCOUNTER 2023-09-24 11:41 | Outpatient (AMB) | payer OTHER, SELFPAY ==
[2023-09-24 11:47] VITALS: BP 124/82; PULSE 72; O2SAT 98; BMI 25.4
--- NOTE | 2023-09-24 11:47 | MHC.PC.OV ---
Vital Signs 09/24/23 11:47 Height 5 ft 6 in Weight 157 lb 6 oz BMI 25.4 BP 124/82 Blood Pressure Location Lt brachial Position Sitting Pulse 72 Pulse Source Pulse Oximeter Pulse Oximetry (%) 98 Oxygen Delivery Method Room Air Intake Visit Reasons: Annual Exam Hydrology Technician Required: No Accompanied by: Self / Same As Patient Allergies No Known Allergies [No Known Allergies*] Allergy (Verified 09/24/23 12:03) Medication List - Last Reconciled 09/24/23 by Rubens Yuen MD docusate sodium (Colace) 100 mg PO BID ibuprofen 600 mg PO Q6H PRN psyllium husk (Metamucil) 1 tbsp PO DAILY Tobacco use date assessed: 09/24/23 Dental Screening Dental Screen Date: 09/24/23 Did you have a dental visit in the last 12 months?: Yes Did you have a dental problem in the last 6 months where you did not have access to dental care?: No Was dental information given to patient?: Patient has dentist HPI Annual Exam HPI Details Patient comes in today for his annual physical examination - was last seen by me in October 2018 States that he is still experiencing increased constipation and usually has a bowel movement every 3 days despite taking his Colace BID States that he has also tried taking some of his daughter's Miralax powder at home daily for the past week or so with no relief and that he has to strain a lot during every bowel movement He had his hemorrhoid surgery with Dr. Holly last month and states that his surgery went well but he is concerned that his ongoing constipation will cause his hemorrhoids to recur States that he feels okay otherwise He denies any headaches or dizziness Denies any chest pains, no SOB No nausea/vomiting, no abdominal pain Denies any acute urinary symptoms He was seen by Dr. Laughlin for his hepatitis C and was sent for some additional work ups but states that he has not heard back from her office since his last visit in July 2023 [facility] Medical History (Updated 09/26/23 @ 16:53 by Rubens Yuen MD) Depression Migraine Lumbar degenerative disc disease Chronic constipation Hepatitis C Elevated LFTs Asthma COVID-19 Surgical History History of hemorrhoidectomy (~08/20/23) History of shoulder surgery History of facial surgery Social History Housing: Apartment Alcohol intake: never Patient Tobacco Use Status: Never used Tobacco Tobacco use type: Cigarette Cigarettes Per Day: 1 e-Cigarette/Vaping Use: Never Used Second Hand Smoke Exposure: Yes Substance Use Type: Marijuana service: No Current occupational status: employed Cognitive needs: No Hearing needs: No Vision needs: No Questionnaire PHQ-9 Over the last 2 weeks, how often have you been bothered by any of the following problems? 1. Little interest or pleasure in doing things: several days 2. Feeling down, depressed, or hopeless: several days 3. Trouble falling or staying asleep, or sleeping too much: several days 4. Feeling tired or having little energy: not at all 5. Poor appetite or overeating: nearly every day 6. Feeling bad about yourself - or that you are a failure or have let yourself or your family down: not at all 7. Trouble concentrating on things, such as reading the newspaper or watching television: not at all 8. Moving or speaking so slowly that other people could have noticed. Or the opposite - being so fidgety or restless that you have been moving around a lot more than usual: not at all 9. Thoughts that you would be better off or of hurting yourself in some way: not at all Total score: 6 Depression Screening Interpretation: Positive Depression Screening Follow-up: Existing condition and Follow-up Visit Requested Depression Screening Done: Yes [id number] - PHQ-9 Billing: Yes Source: Developed by Drs. Nate Antonio, Gayathri Espino, Rj Burr and colleagues, with an educational radha from [employer]. Thrive Questionnaire Date Thrive assessed: 09/24/23 I am a: Patient What is your living situation today?: I have a steady place to live Within the past 12 months, did the food you bought not last and you didn't have the money to get more?: Never true Within the past 12 months, did you worry whether your food would run out before you got money to buy more?: Never true Do you have trouble paying for medicines?: No Do you have trouble getting transportation to medical appointments?: No Do you have trouble paying your heating and electricity bill?: No Do you have trouble taking care of your child, family member or friend?: No Do you have trouble with day-to-day activities such as bathing, preparing meals, shopping, managing finances, etc.?: No Are you currently unemployed and looking for a job?: No Are you interested in more education?: No Please select the resources that you would like help with: None Currently or been in a relationship where the following occur: no concerns reported THRIVE Score: 0 AUDIT C Alcohol Use Questionnaire (AUDIT-C) 1. How often do you have a drink containing alcohol?: Never Total Score: 0 Score Reviewed/Action Taken: Yes ROSIO-7 AMB Questionnaire ROSIO-7 Date ROSIO - 7 assessed: 09/24/23 Feeling nervous, anxious, or on edge: 1 = Several days Not being able to stop or control worryin = Several days Worrying too much about different things: 1 = Several days Trouble relaxin = More than half the days Being so restless that it is hard to sit still: 1 = Several days Becoming easily annoyed or irritable: 0 = Not at all Feeling afraid as if something awful might happen: 0 = Not at all Total ROSIO-7 score (0-4 normal; 5-9 mild; 10-14 moderate; 15-21 severe): 6 Source: Developed by Drs. Nate Antonio, Gayathri Espino, Rj Burr and colleagues, with an educational radha from [employer]. Review of Systems Const Denies chills, Denies fatigue, Denies fever(s), Denies headache(s), Denies malaise and Denies weakness Eyes Denies blurry vision, Denies change in vision, Denies irritation and Denies itchy eyes ENT Denies dysphagia, Denies dizziness, Denies otalgia, Denies headache(s), Denies nasal congestion, Denies neck pain, Denies odynophagia and Denies sore throat Card Denies chest pain, Denies rapid heart rate, Denies irregular heart rhythm, Denies palpitations and Denies dyspnea Resp Denies chest congestion, Denies cough, Denies dyspnea and Denies wheezing GI Denies abdominal pain, Reports bloating, Reports constipation (increased), Denies dysphagia, Denies heartburn, Denies diarrhea, Denies nausea, Denies odynophagia and Denies vomiting Denies hematuria, Denies difficulty urinating, Denies dysuria, Denies urinary frequency and Denies urinary urgency Musc Denies back pain, Denies arthralgias, Denies joint swelling, Denies muscle weakness and Denies neck pain Skin/Breast Denies change in pigmentation, Denies lesions, Denies rash and Denies unusual bruising Neuro Denies dizziness, Denies headache(s), Denies paresthesias and Denies weakness Endo Denies fatigue and Denies palpitations Aller/Immun Denies itchy eyes and Denies wheezing Physical exam (Primary Care) Vital Signs: Last Vital Signs Pulse 72 09/24/23 11:47 BP 124/82 09/24/23 11:47 Pulse Ox 98 09/24/23 11:47 Oxygen Delivery Method Room Air 09/24/23 11:47 BMI result Body Mass Index 25.4 Tobacco/Smoking Status: Tobacco use Status Tobacco use date assessed 09/24/23 09/24/23 11:51 Patient Tobacco Use Status Never used Tobacco 09/24/23 11:51 Tobacco use type Cigarette 09/24/23 11:51 e-Cigarette/Vaping Use Never Used 09/24/23 11:51 PHQ-9: PHQ-9 Score PHQ-9: Total score 6 09/24/23 12:35 Depression Screening Interpretation: Positive Depression Screening Follow-up: Existing condition and Follow-up Visit Requested Thrive Assessment: Date of Thrive Assessment Date Thrive assessed 09/24/23 09/24/23 11:51 Currently or been in a relationship where the following occur: no concerns reported Const General: no acute distress, alert and awake Orientation/consciousness: patient oriented x3 HENMT Head: Yes normocephalic and Yes atraumatic Ears: external ears normal, TM's normal bilaterally and EAC's normal General nose exam: No nasal discharge present Face and sinus: Yes normal facial exam and Yes sinuses nontender Teeth and gingiva: dentition normal Throat: Yes posterior oropharynx normal and Yes tonsils normal (no TP congestion) Eyes Eyelids: Yes eyelids normal Conjunctivae: conjunctivae normal Pupils: Equal, round and reactive pupils present EOM: EOMs intact bilaterally Neck Neck: Yes no lymphadenopathy and Yes supple Thyroid: Thyroid normal Resp Auscultation: clear to auscultation bilaterally, no rales and no wheezes Cardio Rate: regular rate Rhythm: regular rhythm Heart sounds: no murmurs GI Palpation (GI): Soft to palpation, nontender and No hepatosplenomegaly present Auscultation: normal bowel sounds General: Yes no CVA tenderness Back/Spine/Pelvis Back: no CVA tenderness Thoracic/Lumbar Spine: thoracic and lumbar spine normal to inspection Skin Lesions: no lesions Rashes: no rashes Neuro General: patient oriented x3, moves all extremities, no focal motor deficits and CN's II-XI intact bilaterally Cranial nerves: Yes Equal, round and reactive pupils present Cognition (Neuro): normal cognition Gait exam (Neuro): Normal gait present Extrem General: Yes no clubbing, cyanosis or edema Assessment and Plan Assessment & Plan (1) Annual physical exam: Code(s): Z00.00 - Encounter for general adult medical examination without abnormal findings Plan: Check labs (2) Chronic constipation: Code(s): K59.09 - Other constipation Plan: He is encouraged to increase his oral fluid and dietary fiber intake Continue Colace 100 mg BID States that he has tried Miralax daily for over a week with no relief Was also prescribed some Metamucil powder by Dr. Holly last month but states that he did not get the Rx - is likely because this is available OTC and his insurance would not cover the Rx Will try him on Linzess 145 mcg QD - patient is advised to let us know right away if this is not covered by his insurance as well and can try Amitiza instead (3) Lumbar degenerative disc disease: Code(s): M51.36 - Other intervertebral disc degeneration, lumbar region Plan: Reinforced activity and weight-lifting restrictions to avoid aggravating his lower back pain States that his low back pain has been mostly manageable lately (4) Migraine: Code(s): G43.909 - Migraine, unspecified, not intractable, without status migrainosus Qualifiers: Migraine type: unspecified Status migrainosus presence: without status migrainosus Intractability: not intractable Qualified Code(s): G43.909 - Migraine, unspecified, not intractable, without status migrainosus Plan: Patient states that his migraine headaches have been well-controlled lately and he has not needed to take anything for headaches in a while now Reinforced avoidance of any potential migraine triggers (5) Hepatitis C: Comment: He has active disease and should receive treatment. Code(s): B19.20 - Unspecified viral hepatitis C without hepatic coma Qualifiers: Viral hepatitis chronicity: unspecified Hepatic coma status: without hepatic coma Qualified Code(s): B19.20 - Unspecified viral hepatitis C without hepatic coma Plan: Follow up with infectious disease (Dr. Laughlin) as scheduled - has has an appointment with Dr. Laughlin coming up next week (6) Depression: Code(s): F32.A - Depression, unspecified Qualifiers: Depression Type: unspecified Qualified Code(s): F32.A - Depression, unspecified Plan: States that he has been doing well with his depression lately Used to take Bupropion XL but he has not taken any Rx for depression in the past few years Plan Follow up in 4 months Orders: Orders Complete Blood Count Auto Diff 09/24/23 D64.9 - Anemia, unspecified, Z00.00 - Encounter for general adult medical examination without abnormal findings Lipid Panel 09/24/23 E78.00 - Pure hypercholesterolemia, unspecified, Z00.00 - Encounter for general adult medical examination without abnormal findings US abdomen comp w elastography 09/24/23 B19.20 - Unspecified viral hepatitis C without hepatic coma, R79.89 - Other specified abnormal findings of blood chemistry Comprehensive Cecil. Panel Fast 09/24/23 E78.00 - Pure hypercholesterolemia, unspecified, Z00.00 - Encounter for general adult medical examination without abnormal findings TSH reflex Free T4 09/24/23 E78.00 - Pure hypercholesterolemia, unspecified, Z00.00 - Encounter for general adult medical examination without abnormal findings UA CC w/rflx Micro + Cult 09/24/23 R30.0 - Dysuria, Z00.00 - Encounter for general adult medical examination without abnormal findings Vitamin D 25-OH Total 09/24/23 E55.9 - Vitamin D deficiency, unspecified, Z00.00 - Encounter for general adult medical examination without abnormal findings Medications: New Linzess (linaclotide) 145 mcg PO QAM 30 days 30 caps 1RF NS K59.09 - Other constipation Coding Level of Care Code Est Pt Prev Care 40-64y(93559) Diagnoses Annual physical exam Z00.00 Chronic constipation K59.09 Lumbar degenerative disc disease M51.36 Migraine without status migrainosus, not intractable, unspecified migraine type G43.909 Migraine type: unspecified Status migrainosus presence: without status migrainosus Intractability: not intractable Hepatitis C virus infection without hepatic coma, unspecified chronicity B19.20 Viral hepatitis chronicity: unspecified Hepatic coma status: without hepatic coma Depression, unspecified depression type F32.A Depression Type: unspecified
== END 2023-09-24 12:16 | disposition home or self-care (01) ==
LOC: HO.HMGH 11:41
PROVIDERS: PCP Internal Medicine; Visit Provider Internal Medicine
DX: Z00.00 Encounter for general adult medical examination without abnormal findings (principal); K59.09 Other constipation; M51.36 Other intervertebral disc degeneration, lumbar region; G43.909 Migraine, unspecified, not intractable, without status migrainosus; B19.20 Unspecified viral hepatitis C without hepatic coma; F32.A Depression, unspecified
CPT/HCPCS: 99396

== ENCOUNTER 2023-09-29 14:44 | Outpatient (AMB) | payer OTHER, SELFPAY ==
--- NOTE | 2023-09-29 17:34 | A.OFFVIS_ITS ---
Intake Intake Visit Reasons: labs results possible treatment Allergies No Known Allergies [No Known Allergies*] Allergy (Verified 09/24/23 12:03) HPI labs results possible treatment HPI Details He has Hepatitis C viral load [id number] He feels well. He has F3 fibrosis score. [facility] Medical History Depression Migraine Lumbar degenerative disc disease Chronic constipation Hepatitis C Elevated LFTs Asthma COVID-19 Surgical History Hx of eye surgery History of hemorrhoidectomy (~08/20/23) History of shoulder surgery History of facial surgery Social History Housing: Apartment Alcohol intake: never Patient Tobacco Use Status: Never used Tobacco Tobacco use type: Cigarette Cigarettes Per Day: 1 e-Cigarette/Vaping Use: Never Used Second Hand Smoke Exposure: Yes Substance Use Type: Marijuana service: No Current occupational status: employed Cognitive needs: No Hearing needs: No Vision needs: No Review of Systems Const All systems reviewed & are unremarkable except as noted in HPI and below Assessment & Plan Assessment & Plan (1) Hepatitis C: Comment: I wrote for Epclusa one a day for three months. Check viral load at end of treatment and see in four months. Code(s): B19.20 - Unspecified viral hepatitis C without hepatic coma Qualifiers: Viral hepatitis chronicity: unspecified Hepatic coma status: without hepatic coma Qualified Code(s): B19.20 - Unspecified viral hepatitis C without hepatic coma Plan: na Orders: Orders Hepatitis C Viral Load 4 Months B19.20 - Unspecified viral hepatitis C without hepatic coma Medications: New sofosbuvir-velpatasvir 400-100 mg (Epclusa) 1 tab PO DAILY 12 weeks 84 tabs 0RF sofosbuvir-velpatasvir 400-100 mg (Epclusa) 1 tab PO DAILY 12 weeks 84 tabs 0RF sofosbuvir-velpatasvir 400-100 mg (Epclusa) 1 tab PO DAILY 84 tabs 0RF 12 weeks Telehealth Telehealth Location of provider rendering services: practice address Location of patient: address on file Patient Identification confirmed using: Name, : Yes Telehealth method: voice only Patient verbally consented to treatment: Yes Patient verbally consented to billing insurance company: Yes Patient informed of any privacy concerns related to visit: Yes Minutes spent on Phone/Video with Pt.: 15 Coding Level of Care Code Tele Est Pt Level 3 (42087) Diagnoses Hepatitis C virus infection without hepatic coma, unspecified chronicity B19.20 Viral hepatitis chronicity: unspecified Hepatic coma status: without hepatic coma
== END 2023-09-29 14:47 | disposition home or self-care (01) ==
LOC: HO.HID 14:44
PROVIDERS: PCP Internal Medicine; Visit Provider Internal Medicine
DX: B19.20 Unspecified viral hepatitis C without hepatic coma (principal)
CPT/HCPCS: 99213

== ENCOUNTER → 2023-09-29 14:44 | Outpatient (BNVA) | payer OTHER, SELFPAY | PROVIDERS: PCP Internal Medicine; Visit Provider Internal Medicine ==

== ENCOUNTER 2023-10-23 07:57 | Outpatient (REF) | payer OTHER, SELFPAY ==
[2023-10-23 08:12] LABS: MANUAL DIFF FLAG NO
[2023-10-23 08:32] LABS: Appearance Urine Clear; Color Urine Dark Yellow; Glucose Urine UA Negative (Negative); Leukocyte Esterase Urine Negative (Negative); Nitrite Urine Negative (Negative); Urine Blood Negative (Negative); Urine Ketones Negative (Negative); Urine Protein Negative (Neg-Trace)
[2023-10-23 08:35] LABS: Basophils Absolute Auto 0.1 X10*3/uL (0.0-0.2); Basophils Percent Auto 0.7 % (0-2); Eosinophils Absolute Auto 0.6 X10*3/uL (0.0-0.4); Eosinophils Percent Auto 6.4 % (0-4); Hematocrit 47.1 % (42.0-52.0); Hemoglobin 15.6 g/dl (14.0-18.0); Imm Gran Abs Auto 0.09 X10*3/uL (0.00-0.03); Lymphocytes Percent Auto 33.5 % (20-40); Mean Corpuscular HGB Conc 33.1 g/dl (31.0-36.0); Mean Corpuscular Hemoglobin 29.1 pg (27.0-33.0); Mean Corpuscular Volume 87.9 fL (80.0-98.0); Mean Platelet Volume 10.9 fL (9.4-12.4); Monocytes Absolute Auto 0.9 X10*3/uL (0.1-1.2); Monocytes Percent Auto 9.8 % (2-11); Neutrophils Absolute Auto 4.4 x10*3/uL (2.0-8.3); Neutrophils Percent Auto 48.6 % (45-73); Platelet Count 244 X10*3/uL (160-400); Red Blood Count 5.36 X10*6/uL (4.60-5.80)
[2023-10-23 09:02] LABS: Alanine Aminotransferase 85 U/L (0-40); Albumin Level 4.1 g/dL (3.5-5.0); Alkaline Phosphatase 55 U/L (39-117); Anion Gap 10 (12-20); Aspartate Amino Transferase 39 U/L (5-37); Bilirubin Total 0.6 mg/dL (0.0-1.0); Blood Urea Nitrogen 7 mg/dL (9-16); Calcium 9.7 mg/dL (8.4-10.2); Carbon Dioxide 29 mmol/L (22-29); Chloride 108 mmol/L (96-108); Cholesterol 158 mg/dL (<200); Estimated Glomerular Filt Rate > 60; Glucose Fasting 88 mg/dL (60-99); HDL Cholesterol 48 mg/dL (>40); LDL Cholesterol Calculated 100 mg/dL (<100); Potassium 4.3 mmol/L (3.3-5.1); Sodium 143 mmol/L (135-145); Total Protein 7.5 g/dL (6.5-8.0); Triglycerides 51 mg/dL (<150)
[2023-10-23 09:20] LABS: TSH reflex Free T4 1.41 uIU/mL (0.32-4.0); Vitamin D 25-OH Total 18.3 ng/mL (>30)
== END 2023-10-23 07:58 | disposition home or self-care (01) ==
LOC: HO.LAB 07:57
PROVIDERS: PCP Internal Medicine; Visit Provider Internal Medicine
DX: Z00.00 Encounter for general adult medical examination without abnormal findings (principal); E78.00 Pure hypercholesterolemia, unspecified; R30.0 Dysuria; E55.9 Vitamin D deficiency, unspecified; D64.9 Anemia, unspecified
CPT/HCPCS: 36415; 80053; 80061; 81003; 82306; 84443; 85025

== ENCOUNTER 2023-11-12 16:30 | Outpatient (AMB) | payer SELFPAY ==
[2023-11-12 16:36] VITALS: BP 120/80; PULSE 64; RESP 17; O2SAT 98; BMI 25.2
--- NOTE | 2023-11-12 16:36 | A.OFFPC_ITS ---
Vital Signs 11/12/23 16:36 Height 5 ft 6 in Weight 156 lb BMI 25.2 BP 120/80 Blood Pressure Location Lt brachial Position Sitting Respiration 17 Pulse 64 Pulse Source Pulse Oximeter Pulse Oximetry (%) 98 Oxygen Delivery Method Room Air Intake Visit Reasons: follow up bloodwork Allergies No Known Allergies [No Known Allergies*] Allergy (Verified 11/12/23 17:21) Medication List - Last Reconciled 11/12/23 by Rubens Yuen MD docusate sodium (Colace) 100 mg PO BID ibuprofen 600 mg PO Q6H PRN Linzess (linaclotide) 145 mcg PO QAM 30 days NS psyllium husk (Metamucil) 1 tbsp PO DAILY sofosbuvir-velpatasvir 400-100 mg (Epclusa) 1 tab PO DAILY 12 weeks Tobacco use date assessed: 09/24/23 Dental Screening Dental Screen Date: 09/24/23 HPI follow up bloodwork HPI Details Patient comes in today for his follow up visit States that he still has not been able to get his previously ordered abdominal US done yet States that he was not aware that he had to be fasting for his procedure and the US could not be done as originally scheduled as he went ahead and ate something earlier that day and that he has not yet been called back to reschedule his procedure States that he continues to experience increased constipation and that his insurance would not cover the Linzess that we prescribed for him at his last visit and he would like to have an alternative prescribed for him He would also like to know how he did on his recent labs States that he feels okay otherwise He denies any headaches or dizziness Denies any chest pains, no SOB No nausea/vomiting, no abdominal pain Adds that he has been feeling depressed lately and would like to request for a referral to a therapist [facility] Medical History (Updated 11/14/23 @ 06:16 by Rubens Yuen MD) Vitamin D deficiency Depression Migraine Lumbar degenerative disc disease Chronic constipation Hepatitis C Elevated LFTs Asthma COVID-19 Surgical History Hx of eye surgery History of hemorrhoidectomy (~08/20/23) History of shoulder surgery History of facial surgery Social History Housing: Apartment Alcohol intake: never Patient Tobacco Use Status: Never used Tobacco Tobacco use type: Cigarette Cigarettes Per Day: 1 e-Cigarette/Vaping Use: Never Used Second Hand Smoke Exposure: Yes Substance Use Type: Marijuana service: No Current occupational status: employed Cognitive needs: No Hearing needs: No Vision needs: No Questionnaire PHQ-9 Over the last 2 weeks, how often have you been bothered by any of the following problems? 1. Little interest or pleasure in doing things: several days 2. Feeling down, depressed, or hopeless: several days 3. Trouble falling or staying asleep, or sleeping too much: several days 4. Feeling tired or having little energy: not at all 5. Poor appetite or overeating: nearly every day 6. Feeling bad about yourself - or that you are a failure or have let yourself or your family down: not at all 7. Trouble concentrating on things, such as reading the newspaper or watching television: not at all 8. Moving or speaking so slowly that other people could have noticed. Or the opposite - being so fidgety or restless that you have been moving around a lot more than usual: not at all 9. Thoughts that you would be better off or of hurting yourself in some way: not at all Total score: 6 Depression Screening Interpretation: Positive Depression Screening Follow-up: Existing condition and Community Mental Health Worker F/U Depression Screening Done: Yes 00643 - PHQ-9 Billing: Yes Source: Developed by Drs. Nate Antonio, Gayathri Espino, Rj Burr and colleagues, with an educational radha from [employer]. Thrive Questionnaire Date Thrive assessed: 09/24/23 ROSIO-7 AMB Questionnaire ROSIO-7 Date ROSIO - 7 assessed: 09/24/23 Source: Developed by Drs. Nate Antonio, Gayathri Espino, Rj Burr and colleagues, with an educational radha from [employer]. Review of Systems Const Denies chills, Denies fatigue, Denies fever(s) and Denies headache(s) ENT Denies dysphagia, Denies dizziness, Denies otalgia, Denies headache(s), Denies neck pain, Denies odynophagia and Denies sore throat Card Denies chest pain, Denies rapid heart rate, Denies irregular heart rhythm, Denies palpitations and Denies dyspnea Resp Denies chest congestion, Denies cough, Denies dyspnea and Denies wheezing GI Denies abdominal pain, Reports bloating, Reports constipation (increasing), Denies dysphagia, Denies heartburn, Denies diarrhea, Denies nausea, Denies odynophagia and Denies vomiting Denies difficulty urinating, Denies dysuria and Denies urinary frequency Musc Denies back pain, Denies arthralgias and Denies neck pain Skin/Breast Denies rash Neuro Denies dizziness, Denies headache(s) and Denies paresthesias Psych Reports depression Endo Denies fatigue and Denies palpitations Aller/Immun Denies wheezing Physical exam (Primary Care) Vital Signs: Last Vital Signs Pulse 64 11/12/23 16:36 Resp 17 11/12/23 16:36 BP 120/80 11/12/23 16:36 Pulse Ox 98 11/12/23 16:36 Oxygen Delivery Method Room Air 11/12/23 16:36 BMI result Body Mass Index 25.2 Tobacco/Smoking Status: Tobacco use Status Tobacco use date assessed 09/24/23 11/12/23 16:36 Patient Tobacco Use Status Never used Tobacco 11/12/23 16:36 Tobacco use type Cigarette 11/12/23 16:36 e-Cigarette/Vaping Use Never Used 11/12/23 16:36 PHQ-9: PHQ-9 Score PHQ-9: Total score 6 11/13/23 20:44 Depression Screening Interpretation: Positive Depression Screening Follow-up: Existing condition and Community Mental Health Worker F/U Thrive Assessment: Date of Thrive Assessment Date Thrive assessed 09/24/23 11/12/23 16:36 Const General: no acute distress and alert HENMT Ears: TM's normal bilaterally and EAC's normal Throat: Yes posterior oropharynx normal and Yes tonsils normal (no TP congestion) Neck Neck: Yes no lymphadenopathy and Yes supple Thyroid: Thyroid normal Resp Auscultation: clear to auscultation bilaterally, no rales and no wheezes Cardio Rate: regular rate Rhythm: regular rhythm Heart sounds: no murmurs GI Palpation (GI): Soft to palpation and nontender Auscultation: normal bowel sounds General: Yes no CVA tenderness Back/Spine/Pelvis Back: no CVA tenderness Skin Rashes: no rashes Extrem General: Yes no clubbing, cyanosis or edema Results Reviewed Results Reviewed: Laboratory Tests 10/23/23 10/23/23 08:10 08:20 WBC 9.0 Hgb 15.6 Hct 47.1 Plt Count 244 Sodium 143 Potassium 4.3 Creatinine 0.96 Estimated GFR > 60 Fasting Glucose 88 Calcium 9.7 D AST 39 H ALT 85 H Triglycerides 51 Cholesterol 158 LDL Cholesterol, Calc 100 H HDL Cholesterol 48 25-OH Vitamin D Total 18.3 L TSH 1.41 Ur Specific [place] 1.020 Urine Protein Negative Urine Glucose (UA) Negative Urine Blood Negative Urine Nitrite Negative Ur Leukocyte Esterase Negative Assessment and Plan Assessment & Plan (1) Chronic constipation: Code(s): K59.09 - Other constipation Plan: Patient is again encouraged to increase his oral fluids and dietary fiber intake Continue Colace 100 mg BID; he has tried Miralax in the past with no relief We tried starting him on Linzess 145 mcg QD but his insurance would not cover the Rx Will try him on Amitiza 24 mcg QD instead (2) Migraine: Code(s): G43.909 - Migraine, unspecified, not intractable, without status migrainosus Qualifiers: Migraine type: unspecified Status migrainosus presence: without status migrainosus Intractability: not intractable Qualified Code(s): G43.909 - Migraine, unspecified, not intractable, without status migrainosus Plan: Patient states that his migraine headaches have been well-controlled lately and he has not needed to take anything for headaches in a while now Reinforced avoidance of any potential migraine triggers (3) Lumbar degenerative disc disease: Code(s): M51.36 - Other intervertebral disc degeneration, lumbar region Plan: Reinforced activity and weight-lifting restrictions to avoid aggravating his lower back pain States that his low back pain has been mostly manageable lately (4) Vitamin D deficiency: Code(s): E55.9 - Vitamin D deficiency, unspecified Plan: Results of his labs done a couple of weeks ago reviewed and discussed with patient He is advised that his Vitamin D level is very low on his recent labs Will start him on Vitamin D3 2000 units QD (5) Hepatitis C: Comment: I wrote for Epclusa one a day for three months. Check viral load at end of treatment and see in four months. Code(s): B19.20 - Unspecified viral hepatitis C without hepatic coma Qualifiers: Viral hepatitis chronicity: unspecified Hepatic coma status: without hepatic coma Qualified Code(s): B19.20 - Unspecified viral hepatitis C without hepatic coma Plan: He has been started on Epclusa 400-100 mg QD but states that he cannot afford the co-pay for his Rx and plans to request for a different Rx from Dr. Laughlin Follow up with infectious disease (Dr. Laughlin) as scheduled (6) Elevated LFTs: Code(s): R79.89 - Other specified abnormal findings of blood chemistry Plan: Will again refer him for abdominal US for further evaluation (7) Depression: Code(s): F32.A - Depression, unspecified Qualifiers: Depression Type: unspecified Qualified Code(s): F32.A - Depression, unspecified Plan: Patient used to take Bupropion XL but he has not taken any Rx for depression in the past few years States that he has been feeling more depressed lately and is requesting for a referral to psychiatry and counseling - referral done Will start him for now on Sertraline 25 mg QD Plan Follow up in 3 months Orders: Orders US abdomen comp w elastography 11/12/23 B19.20 - Unspecified viral hepatitis C without hepatic coma, R79.89 - Other specified abnormal findings of blood chemistry Referrals Psychiatry Referral F32.A - Depression, unspecified Medications: New lubiprostone (Amitiza) 24 mcg PO DAILY 30 caps 3RF 30 days K59.09 - Other constipation sertraline 25 mg PO DAILY 30 tabs 3RF 30 days cholecalciferol (vitamin D3) 50 mcg PO DAILY 90 caps 3RF 90 days E55.9 - Vitamin D deficiency, unspecified Discontinued Linzess (linaclotide) Discontinued Reason: Insurance Denied 145 mcg PO QAM 30 days 30 caps 1RF NS K59.09 - Other constipation Coding Level of Care Code Est Pt Level 4 (21501) Diagnoses Chronic constipation K59.09 Migraine without status migrainosus, not intractable, unspecified migraine type G43.909 Migraine type: unspecified Status migrainosus presence: without status migrainosus Intractability: not intractable Lumbar degenerative disc disease M51.36 Vitamin D deficiency E55.9 Hepatitis C virus infection without hepatic coma, unspecified chronicity B19.20 Viral hepatitis chronicity: unspecified Hepatic coma status: without hepatic coma Elevated LFTs R79.89 Depression, unspecified depression type F32.A Depression Type: unspecified
== END 2023-11-12 17:37 | disposition home or self-care (01) ==
PROVIDERS: PCP Internal Medicine; Visit Provider Internal Medicine
DX: K59.09 Other constipation (principal); G43.909 Migraine, unspecified, not intractable, without status migrainosus; M51.36 Other intervertebral disc degeneration, lumbar region; E55.9 Vitamin D deficiency, unspecified; B19.20 Unspecified viral hepatitis C without hepatic coma; R79.89 Other specified abnormal findings of blood chemistry; F32.A Depression, unspecified
CPT/HCPCS: 99214

== ENCOUNTER 2023-11-17 09:02 | Outpatient (REF) | payer OTHER, SELFPAY ==
--- NOTE | ~2023-11-17 | US_ITS ---
EXAMINATION: US COMPLETE ABDOMEN WITH LIVER ELASTOGRAPHY CLINICAL INFORMATION: Abnormal findings of blood chemistry. COMPARISON: Abdominal ultrasound 08/05/2021. CT abdomen 08/05/2021. TECHNIQUE: Real-time imaging of the abdominal viscera. Noninvasive ultrasound liver fibrosis assessment is performed using Dereje ElastPQ point quantification shear wave elastography (2D-SWE) with a C5-2 MHz transducer. Multiple elastography samples are obtained. FINDINGS: PANCREAS: Normal. The visualized pancreatic head and body are normal in appearance. The remainder of the pancreas is obscured from visualization by the overlying bowel gas. ABDOMINAL AORTA: The proximal, middle, and distal aortic segments are normal in caliber. INFERIOR VENA CAVA: Visualized portions are normal. LIVER: Liver parenchymal echogenicity appears normal. There is a 1.9 cm well-circumscribed hyperechoic lesion in the right hepatic lobe which on previous CT scan measured up to 1.6 cm. No biliary ductal dilatation. The right lobe measures 17.7 cm in length. The left lobe measures 12.4 cm in length. Portal flow is hepatopedal. Shear wave liver elastography median stiffness is 1.95 m/s (reference: normal median stiffness is 1.3 m/s or less). IQR/median stiffness to assess sampling precision is 0.18 (reference: good quality data set is IQR/median stiffness of 0.15 or less). GALLBLADDER: Normal. The gallbladder is physiologically distended without evidence of stones, sludge, polyps, wall thickening or pericholecystic fluid. COMMON BILE DUCT: Normal in caliber measuring 0.2 cm in diameter. RIGHT KIDNEY: Normal. No hydronephrosis. No renal calculi or focal parenchymal lesions. The kidney measures 11.5 cm in maximum dimension. LEFT KIDNEY: Normal. No hydronephrosis. No renal calculi or focal parenchymal lesions. The kidney measures 10.7 cm in maximum dimension. SPLEEN: Normal. The spleen measures 9.4 cm in maximum dimension. FREE FLUID: None. US/US abdomen comp w elastography IMPRESSION: 1. Liver parenchymal echogenicity appears normal. 1.9 cm hyperechoic lesion in the right hepatic lobe is likely a hemangioma. 2. Liver elastography: Although measurements are suggestive of compensated advanced chronic liver disease, there is statistical variability of the sampling which decreases accuracy. No morphologic cirrhosis. No splenomegaly. REFERENCE: Society of Radiologists in Ultrasound Liver Stiffness Thresholds (2020): LIVER STIFFNESS THRESHOLDS: *Liver Stiffness equal or less than 1.3 m/s: High probability of being normal. *Liver Stiffness less than 1.7 m/s: In the absence of other known clinical signs, rules out compensated advanced chronic liver disease. *Liver Stiffness 1.7-2.1 m/s: Suggestive of compensated advanced chronic liver disease but need further test for confirmation. *Liver Stiffness over 2.1 m/s: Rules in compensated advanced chronic liver disease. *Liver Stiffness over 2.4 m/s: Suggestive of clinically significant portal hypertension. QUALITY OF DATA SET: *IQR/Median value equal or less than 0.15 implies a quality data set. *IQR/Median value over 0.15 implies a poor quality data set. SIGNIFICANT CHANGE FROM PRIOR EXAM: Significant change if liver stiffness measurement is 10% or greater from prior exam. OTHER CONSIDERATIONS: The stage of liver fibrosis may be overestimated in the setting of acute hepatitis, liver inflammation, elevated liver function tests, hepatic vascular congestion, obstructive cholestasis, non-fasting state, and infiltrative diseases such as amyloidosis and lymphoma. In some patients with NAFLD, the liver stiffness thresholds for compensated advanced chronic liver disease may be lower. In causes other than viral hepatitis and NAFLD, liver stiffness thresholds are not well established.
== END 2023-11-17 09:03 | disposition home or self-care (01) ==
LOC: HO.US 09:02
PROVIDERS: Visit Provider Internal Medicine
DX: R79.89 Other specified abnormal findings of blood chemistry (principal); B19.20 Unspecified viral hepatitis C without hepatic coma
CPT/HCPCS: 76700; 76981

== ENCOUNTER 2025-07-20 15:42 | Emergency (ER) | payer OTHER, SELFPAY ==
[2025-07-20 16:30] VITALS: BP 115/59; PULSE 56; RESP 18; TEMP 36.3; O2SAT 98; BMI 27.1
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
[2025-07-20 17:22] VITALS: BP 115/59; PULSE 56; RESP 18; TEMP 36.3; O2SAT 98
== END 2025-07-20 17:22 | disposition home or self-care (01) ==
PROVIDERS: Emergency Provider Emergency Medicine; PCP Internal Medicine
DX: S16.1XXA Strain of muscle, fascia and tendon at neck level, initial encounter (principal); V43.52XA Car driver injured in collision with other type car in traffic accident, initial encounter; M54.6 Pain in thoracic spine; M54.50 Low back pain, unspecified; F17.210 Nicotine dependence, cigarettes, uncomplicated; Y93.89 Activity, other specified; Y92.414 Local residential or business street as the place of occurrence of the external cause; Y99.9 Unspecified external cause status
CPT/HCPCS: 99282